=== PATIENT | female | born 1965 | race Two or more races ===

== ENCOUNTER → 2025-04-12 | Outpatient (CLI) | payer OTHER, MEDICAID, SELFPAY ==
--- NOTE | 2025-04-12 11:30 | XR_ITS ---
Examination: Screening digital mammography, bilateral Computer aided detection 3-D breast Tomosynthesis, bilateral Date and time of exam: April 12, 2025 1202 hours Compared to mammograms dating to September 03, 2017 Indication: Screening Technique: Nonmagnified MLO, CC views of the breasts to been obtained, reconstructed from 3-D Tomosynthesis images. R2 computer aided detection program utilized for evaluation of suspicious masses and/or abnormal calcifications. 3-D Tomosynthesis images obtained. Findings: Scattered areas of fibroglandular density. 25 mm focal asymmetry upper outer left breast Impression: BI-RADS Category 0: Incomplete: Need additional imaging evaluation 25 mm focal asymmetry upper outer left breast, recommend follow-up spot tomographic views of this asymmetry as well as left breast sonography to complete the workup.
== END | disposition home or self-care (01) ==
LOC: CDIM 11:50
PROVIDERS: Referring Provider Registered Nurse Community Health; Visit Provider Registered Nurse Community Health
DX: Z12.31 Encounter for screening mammogram for malignant neoplasm of breast (principal); N64.89 Other specified disorders of breast
CPT/HCPCS: 77063; 77067

== ENCOUNTER 2025-04-14 02:51 | Inpatient (IN) | payer OTHER, MEDICAID, MEDICARE, SELFPAY ==
[2025-04-14] VITALS (37 sets, daily range): BP systolic 110–176; BP diastolic 42–122; PULSE 103–144; RESP 13–31; TEMP 36.6–37.1; O2SAT 91–98; BMI 53.5
--- NOTE | 2025-04-14 03:03 | XR_ITS ---
Examination: CT abdomen and pelvis without contrast. Coronal 3-D reconstructions. Sagittal 2-D reconstructions. Date and time of exam:April 14, 2025, 0347 hours Comparison April 21, 2024. INDICATIONS: Abdominal pain and distention beginning yesterday CTDI: vol (mGy): 20.6 DLP: (mGycm): 1081. Technique: Axial images of the abdomen have been obtained, 3 mm slice thickness Intravenous contrast material has not been administered. Low dose protocols were performed. One or more of the following dose reduction techniques were used; automated exposure control, adjustment of the mA and/or KV according to patient size, use of iterative reconstruction technique. Findings: No focal liver or splenic lesions No gallstones Supraumbilical 6.6 cm hernia defect containing transverse colon and second ventral right hernia defect, 6.8 cm which contains small bowel Dilated small bowel loops consistent with at least partial obstruction Aorta normal size No renal or ureteral calculi Edema in the mesentery No pericecal inflammatory change Intact urinary bladder Anteverted uterus No pelvic mass Moderate osteopenia IMPRESSION: Hernia defects as above Small bowel obstruction pattern which appears to relate more to adhesions rather than definite incarcerated bowel in the hernia defects Consider Gastrografin small bowel series follow-up
--- NOTE | 2025-04-14 03:03 | EKG_ITS ---
[facility] Test Date: 2025-04-14 Pat Name: MEG DAY Department: Room: - Gender: Female Conservation Technician: : 1965 Requested By: Boris Connor Order Number: [id number] Reading MD: Boris Connor Measurements Intervals [place] Rate: 105 P: 48 WI: 167 QRS: 120 QRSD: 82 T: 39 QT: 351 QTc: 465 Interpretive Statements SINUS TACHYCARDIA POSSIBLE RIGHT VENTRICULAR HYPERTROPHY [SOME/ALL OF: PROMINENT R IN V1, LATE TRANSITION, RAD, AGNES, SSS] No previous ECG available for comparison /store/S0/[id number]/ecg/[id number].pdf
--- NOTE | 2025-04-14 03:06 | PD.EDABDPN ---
ED Abdominal Pain RME/HPI General Chief Complaint: Abdominal Pain Stated complaint: ABD PAIN, VOMITING Time seen by provider: 04/14/25 02:55 Arrival date/time: 04/14/25 02:51 RME / HPI RME / HPI narrative: DR. FRASER MAIN ED EVALUATION: 59 y/o female with Hx of previous bowel obstruction and remote ventral wall hernia repair presenting with generalized abdominal pain x 24 hours duration constant in nature, described as sharp. Also reports associated multiple episodes of non-bloody emesis. Denies dysuria and fever. Patient notes diaphoresis and increasing pain with valsalver. No other concerns or complaints expressed at this time. Related Data Home Medications ?Medication ?Instructions ?Recorded ?Confirmed lovastatin 40 mg tablet 40 mg PO HS High Cholesterol #0 07/25/14 04/21/24 tabs cyclobenzaprine 10 mg tablet 10 mg PO HS 04/21/24 04/21/24 empagliflozin 25 mg tablet 25 mg PO DAILY 04/21/24 04/21/24 (Jardiance) ergocalciferol (vitamin D2) 1,250 1,250 mcg PO QWEEK 04/21/24 04/21/24 mcg (50,000 unit) capsule ferrous sulfate 325 mg (65 mg 325 mg PO AC 04/21/24 04/21/24 iron) tablet (FeroSul) hydroxyzine HCl 50 mg tablet 50 mg PO HS 04/21/24 04/21/24 meloxicam 15 mg tablet 15 mg PO HS 04/21/24 04/21/24 omeprazole 20 mg capsule,delayed 20 mg PO DAILY 04/21/24 04/21/24 release semaglutide 2 mg/dose (8 mg/3 mL) 2 mg subcut QWEEK 04/21/24 04/21/24 subcutaneous pen injector (Ozempic) sertraline 100 mg tablet 100 mg PO DAILY 04/21/24 04/21/24 sitagliptin phosphate 100 mg 100 mg PO DAILY 04/21/24 04/21/24 tablet (Januvia) Previous Rx's ?Medication ?Instructions ?Recorded lactulose 20 gram/30 mL oral 20 g (30 mL) PO HS #1,200 mL 04/22/24 solution Allergies Allergy/AdvReac Type Severity Reaction Status Date / Time amoxicillin Allergy Severe DIFF Verified 06/15/20 03:47 BREATHING, HIVES Penicillins Allergy Severe DIFF Verified 06/15/20 03:47 BREATHING, HIVES ibuprofen Allergy Intermediate SWELLING Verified 06/15/20 03:47 TO LEGS Review of Systems Review of Systems Systems Reviewed: All systems reviewed, normal except as documented Past Medical History Past Medical History RESPIRATORY: Positive Asthma ENDOCRINE: Positive Diabetes Mellitus Type 2 ED Exam Narrative Physical exam: GEN. APPEARANCE: The patient is alert awake oriented X-3 in no distress, lying down comfortably, does not look ill/toxic. Patient has good eye contact. Patient is cooperative. VITALS: All vitals were reviewed and the pulse ox is 98% on room air which is normal according to my interpretation. HEENT: Normocephalic, atraumatic. Pupils are equal and reactive. Oral mucosa is moist. Patent Nares NECK: Supple, nontender, no thyromegaly, no meningismus, no JVD, no step offs CHEST: Symmetrical, atraumatic, and with equal expansion , Nontender on palpation no deformity and no crepitus. CARDIOVASCULAR: Heart regular rhythm no murmur or gallop rub or extra beats. LUNGS: Clear to auscultation bilaterally with symmetrical chest rise. No laboring tachypnea or wheezing. No intercostal subcostal retraction. No rales and no rhonchi. ABDOMEN: Soft, flat, nontender to palpation, no guarding or rebound tenderness. There are no abnormal masses palpated. Active and normal bowel sounds. EXTREMITIES: Nontender. No edema. No cyanosis. Patient is able to move all 4 extremities well, with full ROM and good CSM. SKIN: Warm and dry, no jaundice or rashes noted. MUSCULOSKELETAL: No lubar or midline bony tenderness. There is no CVA tenderness. No paraspinal muscle spasm or tenderness. NEURO: Patient is STERLING x 4, Cranial nerves II through XII grossly intact. There is no focal neurologic deficits noted. GCS is 15, PNS and GRILL ASSOCIATE appear grossly intact. PSYCHIATRIC: Patient is in normal mood and affect, cooperative, no SI or HI or hallucinations. Course Quality Measures none Orders Category Date Time Status EKG (ED ONLY) *Do not use* NOW Care 04/14/25 03:03 Completed Insert NG / OG tube NOW Care 04/14/25 06:23 Active Consult to Gastroenterology Stat Cons 04/14/25 06:[address] abdomen pelvis wo con Stat Exams 04/14/25 03:03 Taken EKG (ED Only) Stat Exams 04/14/25 03:03 Draft B-Type Natriuretic Peptide Stat Lab 04/14/25 03:20 Completed CBC Stat Lab 04/14/25 03:20 Completed Comprehensive Metabolic Panel Stat Lab 04/14/25 03:20 Completed Lipase Stat Lab 04/14/25 03:20 Completed Magnesium Stat Lab 04/14/25 03:20 Completed Urinalysis Stat Lab 04/14/25 03:03 Ordered Morphine Inj Med 04/14/25 03:03 Discontinued 4 mg IVP X1 ONE Ondansetron Inj [Zofran Inj] Med 04/14/25 03:08 Discontinued 4 mg IVP X1 ONE Vital Signs Vital signs: Vital Signs Temperature 98 F 04/14/25 03:11 Pulse Rate 110 H 04/14/25 03:11 Respiratory Rate 18 04/14/25 03:11 Blood Pressure 156/99 H 04/14/25 03:11 Pulse Oximetry (%) 98 04/14/25 03:11 Oxygen Delivery Method Room Air 04/14/25 03:11 Abdominal Pain MDM MDM Narrative MDM Narrative:: Scribe Attestation: IJu, am scribing for and in the presence of Dr. Fraser. Provider Notation: Although this document has been carefully reviewed, there may still be some phonetic and other typographical errors.? These errors are purely grammatical due to imperfections in the software program and should not be construed in any way to? compromise the substance of the patient's medical care during this visit. 59 y/o female with Hx of previous bowel obstruction and remote ventral wall hernia repair presenting with generalized abdominal pain x 24 hours duration constant in nature, described as sharp. Also reports associated multiple episodes of non-bloody emesis. Please see PE findings. Markedly WBC 12.3. Serum chemistries are unremarkable. Glucose level 378 mg/dL without signs of ketosis. Patient hydrated with NS and treated with low dose narcotic analgesics, anti-emetics, and referred for CT scan. CT of the abdomen/pelvis with documented evidence of SBO. NG tubbe placed, both hospitalist and human service specialist contacted and agree to admit and the latter to consult. Patient data External records reviewed:: [facility] previous records (Reviewed prior ED records from 07/17/24. Patient was seen for Diabetes mellitus with hyperglycemia.) Clinical information provided by:: patient Social determinants that could affect healthcare access:: none Patient has the following chronic illnesses:: Type II DM, Asthma How is presenting disease/condition affected by chronic disease/condition?: exacerbated by Evaluation data The following diagnostics were reviewed and interpreted by me:: lab results, radiology exam(s) and EKG tracing(s) (sin tach 105, no acute st aeg noted no vent ectopy axid righward/) Lab and/or radiology exams considered but not ordered:: None Interpretation Summary: RADIOLOGY Abdomen/Pelvis CT: Pending official radiology report. Medications / Prescriptions Medications or Prescriptions considered but not ordered:: None Medication administrations:: Medication Administration History Discontinued Medications Morphine Sulfate (Morphine Sulf Inj 10 Mg/Ml Vial) 4 mg IVP X1 ONE Stop: 04/14/25 03:04 Last Admin: 04/14/25 03:18 Dose: 4 mg Documented By: HANANE Ondansetron HCl (Ondansetron Inj 2 Mg/Ml Inj 2 Ml) 4 mg IVP X1 ONE; Protocol Stop: 04/14/25 03:09 Last Admin: 04/14/25 03:18 Dose: 4 mg Documented By: HANANE See above Consultations Consultation(s) initiated? (list below): Yes Consultation #1 (Physician, Specialty, Details): Dr. Hunter made aware of the patient?s HPI, PMHx, lab and/or radiology results. Discussed treatment plan. Will consult an admission to the hospitalist. Time: 05:58 Diagnosis Differential diagnosis abdominal pain: abdominal pain, acute appendicitis, calculus of kidney, constipation, diverticulitis, gastroenteritis, pancreatitis and small bowel obstruction Most likely diagnosis given after review of the tests above:: Small bowel obstruction Admission Indicated Admission indicated?: indicated Explain why admission is indicated or not indicated:: Small bowel obstruction Admission Request Was there a request for admission?: Yes Admission Attestation Admission request attestation: Discussed case with [] from Hospitalist service regarding admission. Discussed patients ED course, exam findings, labs, and radiology results. The Hospitalist [agrees,declines] to accept the patient for admission. Disposition Plan Disposition Plan: Admit Discharge Plan Plan Patient Disposition: Admit Acute Care w/in Hospital Prescriptions/Referrals Prescriptions/Med Rec: No Action lovastatin 40 MG tablet 40 mg PO HS Qty: 0 meloxicam 15 mg tablet 15 mg PO HS Patient Comments: take 1 tablet by mouth at bedtime hydroxyzine HCl 50 mg tablet 50 mg PO HS cyclobenzaprine 10 mg tablet 10 mg PO HS Patient Comments: take 1 tablet by mouth at bedtime sertraline 100 mg tablet 100 mg PO DAILY Patient Comments: take 1 tablet by mouth once daily Januvia 100 mg tablet 100 mg PO DAILY Patient Comments: take 1 tablet by mouth once daily omeprazole 20 mg capsule,delayed release(DR/EC) 20 mg PO DAILY Patient Comments: take 1 tablet by mouth once daily for HEARTBURN Jardiance 25 mg tablet 25 mg PO DAILY Patient Comments: take 1 tablet by mouth once daily ferrous sulfate [FeroSul] 325 mg (65 mg iron) tablet 325 mg PO AC Patient Comments: take 1 tablet by mouth once daily BEFORE A MEAL Ozempic 2 mg/dose (8 mg/3 mL) pen injector 2 mg SUBCUT QWEEK Patient Comments: inject 2 milligram subcutaneously every week ergocalciferol (vitamin D2) 1,250 mcg (50,000 unit) capsule 1,250 mcg PO QWEEK Patient Comments: take 1 capsule by mouth every week lactulose 20 gram/30 mL solution 20 g PO HS Qty: 1200 3RF Referrals: Brie Boyd FNP [Primary Care Provider] - In 1 week Problem List Clinical Impression: Small bowel obstruction Patient/Caregiver Discharge Instructions Print Language: Estonian Stand Alone Forms: Brittnee Award Info., Patient Portal Info Letter
[2025-04-14] MEDS: MORPHINE SULF INJ 10 MG/ML VIAL 4 MG IVP (03:18)
[2025-04-14] MEDS: ONDANSETRON INJ 2 MG/ML INJ 2 ML 4 MG IVP ×2 (03:18→08:24)
[2025-04-14 03:29] LABS: Basophils # (Auto) 0.0 Thou/mm3 (0.0-0.2); Basophils % (Auto) 0 % (0-2.5); Eosinophils # (Auto) 0.0 Thou/mm3 (0.0-0.5); Eosinophils % (Auto) 0 % (0-10); Hematocrit 41.4 % (36.0-46.0); Hemoglobin 13.2 g/dL (12.0-16.0); Immature Granulocytes Auto 0.05 Thou/mm3 (0.00-0.00); Lymphocytes # (Auto) 1.5 Thou/mm3 (1.0-4.8); Lymphocytes % (Auto) 12 % (10-50); Mean Corpuscular HGB Conc 31.9 g/dl (31.0-37.0); Mean Corpuscular Hemoglobin 22.7 pg (25.0-35.0); Mean Corpuscular Volume 71 fL (80-100); Monocytes # (Auto) 0.3 Thou/mm3 (0.0-0.8); Monocytes % (Auto) 3 % (0-12); Neutrophils # (Auto) 10.3 Thou/mm3 (1.8-7.7); Neutrophils % (Auto) 84 % (37-80); Nucleated Red Blood Cell # 0.00 Thou/mm3 (0.00-0.00); Nucleated Red Blood Cell % 0 /100 WBC (0); Platelet Count 234 Thou/mm3 (140-440); RDW Standard Deviation 44.4 fL (36.4-46.3); Red Blood Count 5.82 Miln/mm3 (4.00-5.20); White Blood Count 12.3 Thou/mm3 (3.6-11.0)
[2025-04-14 03:49] LABS: B-Type Natriuretic Peptide < 20 pg/mL (0-100)
[2025-04-14 04:03] LABS: Alanine Aminotransferase 42 U/L (10-49); Albumin, Serum 4.7 gm/dL (3.4-4.8); Albumin/Globulin Ratio 1.2 (1.2-2.2); Alkaline Phosphatase 138 U/L (46-116); Anion Gap 14 (7-16); Aspartate Amino Transferase 40 U/L (0-34); BUN/Creatinine Ratio 9 Ratio (12-20); Bilirubin,Total 0.6 mg/dL (0.3-1.2); Blood Urea Nitrogen 7 mg/dL (9-23); Calcium 9.7 mg/dL (8.3-10.6); Calcium (Corrected) 9.7 mg/dL (8.5-10.1); Carbon Dioxide 25.0 mMol/L (20.0-31.0); Chloride 100 mMol/L (98-107); Creatinine (Component) 0.8 mg/dL (0.6-1.3); Estimated Creatinine Clearance 71.5 mL/min (>60); Globulin 3.8 gm/dL (2.3-3.5); Glucose 378 mg/dL (74-106); Lipase 43 U/L (12-53); Magnesium 1.9 mg/dL (1.6-2.6); Osmolality,Calculated 291 (275-295); Potassium 4.0 mMol/L (3.4-5.1); Sodium 139 mMol/L (136-145); Total Protein 8.5 gm/dL (5.7-8.2); eGFR > 60 See Note
--- NOTE | 2025-04-14 05:30 | PRELIM_ITS ---
CT scan of the abdomen and pelvis without intravenous contrast (axial sections with sagittal and coronal reformats) April 14, 2025 0347 hours Clinical History: Rule out perforation Comparison: April 21, 2024. Findings: The lung bases are clear. The gallbladder, pancreas, kidneys and adrenals are unremarkable on this noncontrast study. The liver is enlarged with a calcified granuloma in the right lobe. There is mild splenomegaly. There are supraumbilical ventral abdominal wall hernias containing non-dilated loop of transverse colon and mesenteric fat. There are fluid filled and mildly prominent mid small bowel loops with caliber change in the anterior mid abdomen inferior to the abdominal wall at the level of proximal ileum. The remainder of the ileum is normal in caliber. The appendix is within normal limits (images [id number]). A moderate amount of fecal material is present in the colon. There is no mesenteric or retroperitoneal adenopathy. The urinary bladder is unremarkable. The uterus and adnexa are unremarkable. There is no free fluid or free air. The abdominal aorta demonstrates atheromatous calcification without evidence of aneurysm. Osseous degenerative changes are noted. Impression: 1. Findings suggestive of recurrent small bowel obstruction with transition in the anterior mid abdomen inferior to the abdominal wall at the level of proximal ileum likely due to adhesions. Interval decrease in caliber of the dilated small bowel as compared to prior study. 2. Other findings as described above. Discussion Details: Results verbally communicated to : Dr. Tracey at 05:19 AM 04/14/2025 Report Electronically Signed By: Jamie Gilbert 04/14/2025 5:29:49 AM [EST]
[2025-04-14 07:18] LABS: Collection Type, Urine Clean Catch
--- NOTE | 2025-04-14 07:30 | PC.NURSE ---
admitting providers at bedside. providers notified pt is requesting pain meds prior to NG tube placement.
[2025-04-14 07:33] LABS: Bacteria,Urine Rare; Bilirubin,Urine Negative (Negative); Blood,Urine Negative (Negative); Budding Yeast,Urine Present; Clarity,Urine Clear (Clear/Hazy); Color,Urine Colorless (Lt Yel-Yel); Glucose, Urine 4+ (Negative); Ketones,Urine 3+ (Negative); Leukocyte Esterase,Urine Negative (Negative); Nitrite,Urine Negative (Negative); PH,Urine 6.0 (5.0-7.0); Protein,Urine Negative (Neg - Trace); RBC,Urine 17 /hpf (0-3); Specific Gravity,Urine 1.037 (1.001-1.035); Squamous Epithelial Cell,Urine 3 /hpf (0-5); Urobilinogen,Urine Negative mg/dL (0.0-1.0); WBC,Urine 2 /hpf (0-5)
--- NOTE | 2025-04-14 08:12 | XR_ITS ---
Examination: Small bowel series AP abdomen 3 views Date and time: April 14, 2025 0936 hours INDICATIONS: Abdominal pain and distention this week, small bowel obstruction pattern on CT abdomen pelvis study 0347 hours this morning, abdominal pain and vomiting TECHNIQUE AND FINDINGS: Patient received 120 cc Gastrografin with immediate, 30 minute, 1 hour delayed abdomen films obtained Contrast is present in dilated jejunal loops IMPRESSION: Contrast present in dilated jejunal loops. Recommend follow-up abdomen films 12 noon, 2:00 PM, 4:00 PM
--- NOTE | 2025-04-14 08:14 | ESHP_ITS ---
<Statement entered by Gilmar Avila MD - 04/14/25 15:47> In summary: 59-year-old female with PMHx of T2DM, HTN, HLD, multiple hernia repairs, presenting with abdominal pain x 1 day, with imaging finding of SBO. She was started on GASTROGRAFIN study, NG tube in place. However, she also presented with GLUCOSE of 306, anion gap 14, urine GLUCOSE 4+, urine ketones 3+, sinus tachycardia, and reported symptoms of nausea, prompting further workup for possible DKA. She was continued on IV fluids, INSULIN was started. Follow-up with BHB which was elevated to 4.2. Repeat CBC showed anion gap of 18. ABG showed no evidence of acidosis. CO2 21.9. Nonetheless, given increasing anion gap, decision was made to admit to ICU for INSULIN drip. Case was discussed with attending physician. Gilmar Avila DO PGY II This document was transcribed using voice recognition technology. Minor inaccuracies may be present. Documentation for date of: 04/14/25 HPI History of Present Illness History of present illness: Annmarie Pineda is a 59-year-old female with past medical history of three abdominal hernias, T2DM, asthma who presented to the ED with 24-hour history of abdominal pain. Pain was described as sharp, constantly present, rated 10 out of 10. Patient admits to nonbloody emesis, dizziness, weakness, profuse sweating. Denies fevers or dysuria. Patient had large jose a, peanuts with hot sauce, before she became nauseous and vomited 5 times at home and 3 times in the ED. last bowel movement was last night. Denies any blood in emesis or stool. Denies weight loss changes in appetite. In the ED, patient's pain was controlled with IVP morphine 4 mg x 2, and her nausea with IVP ondansetron. Allergies: Amoxicillin and penicillin Past medical history: Abdominal ventral wall hernia x 3, T2DM, asthma, arthritis, fibromyalgia. Past surgical history: Abdominal ventral hernia repair in 2006, 1993 which resulted in accidental cutting of the bowel loops and required corrective surgery afterwards, surgery to repair tibial fracture. Family history: Father from a stroke. A brother and a sister have DM. Social history: Denies using tobacco products, smoking, marijuana or other drug use. Denies drinking alcohol. Reason for admission: On CT imaging in ED patient was found to have hernia was containing bowel loops; incarceration could not be ruled out. Additionally, there is concern over possible DKA: Widened anion gap 18, glucose 345. Patient is being admitted for the workup of possible SBO and appropriate treatment to resolve her signs and symptoms associated with uncontrolled hyperglycemia. Exam Vital Signs Temp Pulse Resp BP Pulse Ox O2 Del Method 98.4 F 116 H 18 140/97 H 96 Room Air 04/14/25 08:12 04/14/25 08:12 04/14/25 08:12 04/14/25 08:12 04/14/25 08:12 04/14/25 08:12 Narrative Exam General: Alert and oriented x3, No apparent distress. Skin: Intact, Warm, no rashes. HEENT: Normocephalic, Atraumatic. Normal neck range of motion, Supple. Trachea midline. Respiratory: Lungs are clear to auscultation, Breath sounds are equal bilaterally with equal chest expansion. Abdomen: Soft, distended, some guarding noted, diffusely tender to shallow palpation, diminished bowel sounds. Cardiovascular: RRR, normal S1, S2, No murmurs. Distal pulses 2+ Musculoskeletal: No swelling, moving all 4 extremities with FROM Neurologic: Alert, Oriented, No focal deficits. Moving all 4 extremities spontaneously Psych: Thoughts linear and responses appropriate. Results: Labs 04/14/25 03:20 04/15/25 02:16 Labs: Short CBC 04/14/25 Range/Units 03:20 WBC 12.3 H (3.6-11.0) Thou/mm3 Hgb 13.2 (12.0-16.0) g/dL Hct 41.4 (36.0-46.0) % Plt Count 234 (140-440) Thou/mm3 BMP 04/14/25 03:20 Sodium 139 Potassium 4.0 Chloride 100 Carbon Dioxide 25.0 BUN 7 L Creatinine 0.8 Glucose 378 H Calcium 9.7 Liver Function 04/14/25 Range/Units 03:20 Total Bilirubin 0.6 (0.3-1.2) mg/dL AST 40 H (0-34) U/L ALT 42 (10-49) U/L Alkaline Phosphatase 138 H (46-116) U/L Albumin 4.7 (3.4-4.8) gm/dL Urine 04/14/25 Range/Units 06:42 Urine Color Colorless A (Lt Yel-Yel) Urine Clarity Clear (Clear/Hazy) Urine pH 6.0 (5.0-7.0) Ur Specific [place] 1.037 H (1.001-1.035) Urine Protein Negative (Neg - Trace) Urine Glucose (UA) 4+ A (Negative) Quality Measures Quality Measures none Medications Home Medications and Allergies Home Medications ?Medication ?Instructions ?Recorded ?Confirmed ?Type lovastatin 40 mg tablet 40 mg PO HS High Cholesterol #0 07/25/14 04/21/24 History tabs cyclobenzaprine 10 mg tablet 10 mg PO HS 04/21/2404/05 History empagliflozin 25 mg tablet 25 mg PO DAILY 04/21/24 History (Jardiance) ergocalciferol (vitamin D2) 1,250 1,250 mcg PO QWEEK 0 04/21/24 04/21/24 History mcg (50,000 unit) capsule ferrous sulfate 325 mg (65 mg 325 mg PO AC 04/21/24 History iron) tablet (FeroSul) hydroxyzine HCl 50 mg tablet 50 mg PO HS 04/21/2404/05 History meloxicam 15 mg tablet 15 mg PO HS 04/21/24 4 History omeprazole 20 mg capsule,delayed 20 mg PO DAILY 04/21/24 History release semaglutide 2 mg/dose (8 mg/3 mL) 2 mg subcut QWEEK 04/21/24 History subcutaneous pen injector (Ozempic) sertraline 100 mg tablet 100 mg PO DAILY 04/21/24 History sitagliptin phosphate 100 mg 100 mg PO DAILY 04/21/24 04/21/24 History tablet (Januvia) Allergies Allergy/AdvReac Type Severity Reaction Status Date / Time amoxicillin Allergy Severe DIFF Verified 06/15/20 03:47 BREATHING, HIVES Penicillins Allergy Severe DIFF Verified 06/15/20 03:47 BREATHING, HIVES ibuprofen Allergy Intermediate SWELLING Verified 06/15/20 03:47 TO LEGS Visit Medications Acetaminophen (Acetaminophen 325 Mg Tablet) 650 mg PO Q6H PRN PRN Reason: PAIN SCALE 1-3 (mild Stop: 05/14/25 08:10 Acetaminophen (Acetaminophen 325 Mg Tablet) 650 mg PO Q6H PRN PRN Reason: Fever >100.4 Stop: 05/14/25 08:10 Hydrocodone Bitart/Acetaminophen (Hydrocodone/Apap 10/325 Tab) 1 tab PO Q4HR PRN PRN Reason: PAIN SCALE 7-10 (Severe Stop: 04/19/25 08:10 Dextrose (Dextrose 50%-Water Inj 50 Ml Syringe) 25 ml IV Q15MIN PRN PRN Reason: BG 50-70 responsive npo pt Stop: 05/14/25 08:12 Dextrose (Dextrose 50%-Water Inj 50 Ml Syringe) 50 ml IV Q15MIN PRN PRN Reason: BG <50 OR BG <70 & pt unresponsive Stop: 05/14/25 08:12 Glucagon (Glucagon Inj 1 Mg Vial) 1 mg IM Q15MIN PRN PRN Reason: BG <70, and no IV access Heparin Sodium (Porcine) (Heparin Sod Inj 5000 Unit/Ml Vial) 5,000 unit SC BID [facility] Stop: 04/28/25 08:59 Lactated Ringer's (Lactated Ringers) 1,000 mls @ 80 mls/hr IV .[id number] [facility] Stop: 05/14/25 08:11 Insulin Human Lispro (Insulin Lispro (Admelog) 1 Unit/0.01 Ml Unit) 0 unit SC ACHS [facility]; Protocol Stop: 05/14/25 11:29 Morphine Sulfate (Morphine Sulf Inj 10 Mg/Ml Vial) 2 mg IVP X1 ONE Stop: 04/14/25 08:12 Ondansetron HCl (Ondansetron Inj 2 Mg/Ml Inj 2 Ml) 4 mg IVP Q6H PRN; Protocol PRN Reason: NAUSEA OR VOMITING Stop: 05/14/25 08:10 Oxycodone/Acetaminophen (Oxycodone/Apap 5/325 Tablet) 1 tab PO Q6H PRN PRN Reason: PAIN SCALE 4-6 (Moderate Stop: 04/19/25 08:10 Pantoprazole Sodium (Pantoprazole Inj 40 Mg Vial) 40 mg IVP QDAY KELLY Stop: 05/14/25 08:59 Discontinued Medications Morphine Sulfate (Morphine Sulf Inj 10 Mg/Ml Vial) 4 mg IVP X1 ONE Stop: 04/14/25 03:04 Last Admin: 04/14/25 03:18 Dose: 4 mg Ondansetron HCl (Ondansetron Inj 2 Mg/Ml Inj 2 Ml) 4 mg IVP X1 ONE; Protocol Stop: 04/14/25 03:09 Last Admin: 04/14/25 03:18 Dose: 4 mg Assessment & Plan Plan In summary, Annmarie Pineda is a 67-year-old female with PMH of T2DM, arthritis, fibromyalgia, asthma, who presented to the ED with worsening abdominal pain of 24H length. Patient was hyperglycemic and there was concern over symptoms associated with DKA. #Small bowel obstruction, needs to be ruled out Diffuse severe abdominal pain, N/V on presentation. Guarding, abdominal tenderness, diminished bowel sounds on PE. CTAP: Supraumbilical hernia defect containing transverse colon + right ventral hernia defect containing small bowel + dilated small bowel loops. Acute abdominal series with Gastrografin study revealed partial small bowel obstruction. Contrast traveled to mildly distended small bowel loops as well as the colon. ?NG tube gastric decompression. -IV fluids ?N.p.o. -Antiemetics Zofran and hydroxyzine ?Multimodal pain control as needed #Possible DKA Anion gap 18; initial Glucose 378; urine glucose 4+; urine ketones 3+ Patient A&O x 4, normal breathing Plan: -Insulin lispro 4 units ?IV LR 250 mL/h ? Sodium bicarb 8.4% #Type 2 diabetes mellitus Patient on Ozempic Jardiance Januvia at home HgA1c 8.5 one-year ago Plan: Patient on sliding scale insulin #Depression Sertraline 100 mg p.o. daily #Asthma #Arthritis #Fibromyalgia Health maintenance: Diet: N.p.o. GI prophylaxis: Protonix DVT prophylaxis heparin injection 5000 units SC Disposition: ICU Case was discussed with attending physician, Dr. Phillips, and senior resident Dr Avila. Cullen De Leon, PGY I Attending Provider Attestation/Addendum I have examined the patient, reviewed labs and imaging findings, discussed the case with the resident(s), and reviewed entered orders. I agree with the plan of care as outlined in this note, with these additional summaries/recommendations: After examination of the patient and review of the clinical data, I feel that this patient needs admission to the hospital for further treatment and evaluation. Patient is a 59-year-old female with a medical history of multiple abdominal surgeries, history of SBO, hyperlipidemia, primary hypertension, and diabetes mellitus type 2 presents to [facility] emergency department on 04/14/2025 with chief complaint of abdominal pain that simply worsened over 24 hours. Patient seen at bedside. She endorses severe abdominal pain. He denies having bowel movement. CT abdomen and pelvis was obtained on admission which revealed small bowel obstruction pattern more related to adhesions than incarcerated bowel. NG tube was placed to low intermittent suction, n.p.o., and small bowel series ordered. Patient has history of SBO that resolved previously. We will await surgical consultation until small bowel series completed. Continue Zofran for nausea. Patient was also noted to have relatively severe hyperglycemia on admission with blood sugar 378. Beta hydroxybutyrate was obtained and returned to 4.2. Blood gas shows normal pH. Patient diagnosed with mild HHS/DKA. Case discussed with ICU team and patient will be upgraded for management of blood sugars. Leukocytosis present although likely reactive and will monitor for now. Patient updated on the plan and in agreement. All questions answered to satisfaction. Please see residents note for additional details and management. Dr. Alan MD
[2025-04-14] MEDS: MORPHINE SULF INJ 10 MG/ML VIAL 2 MG IVP (08:24)
[2025-04-14] MEDS: RINGERS LACTATED 1000 ML 1,000 ML 80 ML IV (08:27)
[2025-04-14] MEDS: HEPARIN SOD INJ 5000 UNIT/ML VIAL SC ×2 (08:39→21:04)
--- NOTE | 2025-04-14 08:50 | XR_ITS ---
Examination: AP chest single view Technique one AP portable upright chest single view Date and time: April 14, 2025 0854 hours Comparison November 25, 2014 INDICATIONS: Post orogastric tube placement. FINDINGS: Orogastric tube in the stomach satisfactory position. Normal heart size. No pneumonia or pulmonary edema IMPRESSION: Orogastric tube in the stomach satisfactory position.
--- NOTE | 2025-04-14 10:30 | PC.CC ---
Xochilt ABRAHAM made [id number] contact with patient. AMFT introduced self, role, and reason for visit. Patient appeared confused and disoriented. Patients Jak Pineda [phone] identified self as Next if Kin. was pleasant and engaged in initial assessment. Patient is a 59 year-old female who presents to the hospital for SBO. Xochilt ABRAHAM made [id number] contact with patient. AMFT introduced self, role, and reason for visit. Patients was pleasant and engaged in initial assessment. confirmed information on demographics and reports patient is living at home with and daughter. reports is medical decision maker, Jak Pineda [phone]. reports Patient ambulates with a cane but does not need assistance in completing her ADLs. Patient requires single cane as DME. Patient is not a dialysis patient. Patient's primary provider is Brie Boyd and her pharmacy of choice is [facility] in [place]. Upon discharge patient plans to return home. social services aide to follow up with any discharge needs.
[2025-04-14] MEDS: INSULIN LISPRO (AdmeLOG) 1 UNIT/0.01 ML UNIT SC (11:28)
--- NOTE | 2025-04-14 11:30 | PC.NURSE ---
pt attempted to have a BM, attempt unsuccessful.
[2025-04-14 11:58] LABS: Beta Hydroxybutyrate 4.2 mmol/L (<0.6)
--- NOTE | 2025-04-14 12:00 | XR_ITS ---
Examination: Abdomen AP single view Technique: AP portable supine abdomen, single view Exam date and time: April 14, 2025 1158 hours INDICATIONS: 3 hour delayed film post small bowel series today. FINDINGS: Contrast in mildly distended small bowel loops There does appear to be contrast in the colon IMPRESSION: Incomplete small bowel obstruction
[2025-04-14] MEDS: RINGERS LACTATED 1000 ML 1,000 ML 999 ML IV (12:35)
[2025-04-14 12:48] LABS: Lactate (Lactic Acid) 1.6 mMol/L (0.4-2.0)
[2025-04-14 12:53] LABS: Alanine Aminotransferase 39 U/L (10-49); Albumin, Serum 4.4 gm/dL (3.4-4.8); Albumin/Globulin Ratio 1.2 (1.2-2.2); Alkaline Phosphatase 131 U/L (46-116); Anion Gap 18 (7-16); Aspartate Amino Transferase 36 U/L (0-34); BUN/Creatinine Ratio 13 Ratio (12-20); Bilirubin,Total 0.4 mg/dL (0.3-1.2); Blood Urea Nitrogen 10 mg/dL (9-23); Calcium 9.4 mg/dL (8.3-10.6); Calcium (Corrected) 9.4 mg/dL (8.5-10.1); Carbon Dioxide 21.9 mMol/L (20.0-31.0); Chloride 105 mMol/L (98-107); Creatinine (Component) 0.8 mg/dL (0.6-1.3); Estimated Creatinine Clearance 71.5 mL/min (>60); Globulin 3.6 gm/dL (2.3-3.5); Glucose 345 mg/dL (74-106); Osmolality,Calculated 301 (275-295); Potassium 4.1 mMol/L (3.4-5.1); Sodium 145 mMol/L (136-145); Total Protein 8.0 gm/dL (5.7-8.2); eGFR > 60 See Note
[2025-04-14 13:11] LABS: Base Excess -1 (-3-3); HCO3 25 mEq/L (20-26); Inspired Oxygen, FIO2 21 %; O2 Saturation 92 % (91-98); PCO2 43 mmHg (32.0-48.0); PO2 63 mmHg (83-108); pH, Arterial 7.36 (7.35-7.45)
[2025-04-14 13:16] LABS: Allen Test Not Performed; Puncture Site Right Radial
--- NOTE | 2025-04-14 13:17 | ESCONSULT_ITS ---
<Statement entered by Jakub Oneill MD - 04/15/25 08:48> TOTAL CC TIME: 45MIN I saw and evaluated the patient. I reviewed the resident?s note and agree with findings and plan as documented in the resident?s note. Upon my evaluation, this patient had a high probability of imminent or life- threatening deterioration due to DKA which required my direct attention, intervention, and personal management. This time is exclusive of time spent on procedures, which are documented separately if performed. pt seen and examined in ED w/ ICU team due to SBO - she has had poor po intake hx of prior SBOs - due to adhesions hx of multiple hernia repair denies severe abd pain / n / v currently abd obese and non tender ngt to lis will initiate IVFs and DKA order set - admit to ICU HPI Data of Consult Patient: new to practice Consult date: 04/14/25 Requesting Physician: Iraj Phillips MD Admitting Provider: Iraj Phillips MD Attending Provider: Jakub Oneill MD Primary Care Provider: EMMY Dawson Consult Narrative Reason for consult: High anion gap History of present illness: Ms. Pineda is a 59-year-old female with past medical history of abdominal hernia with multiple adhesions in abdomen, yrb-zmwrqiw-dsjnzygmc type 2 diabetes mellitus, fibromyalgia, asthma, hypertension, hyperlipidemia, osteoarthritis and anemia who presented to [facility] emergency department on 04/14/2025 with a chief complaint of generalized abdominal pain. Patient reported that her symptoms started yesterday, sudden in onset and progressively got worse, reports that she was in significant pain and distress since yesterday, though did have 2 bowel movements. This morning her abdomen became more distended she had severe pain and decided to come to the emergency department for evaluation, patient reports underlying chills dizziness nausea and vomiting associated with her abdominal pain reports that she had about 5 episodes of nonbloody emesis, denies any blood in stool as well. Patient reports that she was fairly well prior to yesterday, denies any sick contacts, shortness of breath, chest pain, near-syncope, syncope, headache, any urinary symptoms and diarrhea. ED Course: ED Vitals: On presentation in ED patient's blood pressure 156/99, heart rate 110, respirate rate 18, temp 98, O2 sat 98 on room air. ED Labs: ED labs show WBC 12.3, RBC 5.82, MCV 71, MCH 22.7, sodium 139, potassium 4.0, chloride 100, bicarb 25, anion gap 14, BUN 7, creatinine 0.8, GFR greater than 60, glucose 378, osmolality 291, calcium 9.7, magnesium 1.9, AST 40, alk phos 138, total protein 8.5, globulin 3.8 ED Imaging: Imaging in ED showed CT abdomen pelvis showing hernia defects, small bowel obstruction patent related to adhesions, small bowel series ordered and ED show contrast and dilated jejunal loops follow-up abdominal x-ray at 12 shows incomplete SBO, chest x-ray in ED shows OG tube in satisfactory position and EKG in ED shows sinus tachycardia, QTc 465 ED Treatment: Patient was given morphine 4 mg x 2, Zofran 4 mg x 2 in ED Patient was admitted to the Medr floor by hospitalist team earlier this morning, due to concern of patient's blood glucose being significantly elevated and 300s, CMP was repeated by hospitalist team showing anion gap of 18 and the bicarb was downtrending. Urine glucose 4 positive, ketones 3 positive. Beta hydroxybutyrate was elevated to 4.2 patient was noted to be progressing towards diabetic ketoacidosis, decision was made to transfer patient to intensive care unit for DKA management. cc:: cc: Iraj Phillips MD Review of Systems Review of Systems Narrative Review of Systems: ROS: -CONSTITUTIONAL: Denies weight loss, fever and positive for chills. -HEENT: Denies changes in vision and hearing. -RESPIRATORY: Denies SOB and cough. -CV: Denies palpitations and Chest Pain. -GI: Positive for abdominal pain, nausea, vomiting,constipation and denies diarrhea. -: Denies dysuria and urinary frequency. -MSK: Denies myalgia and joint pain. Positive for fatigue generalized weakness -SKIN: Denies rash and pruritus. -NEUROLOGICAL: Denies headache and syncope. Positive for dizziness -PSYCHIATRIC: Denies recent changes in mood. Denies anxiety and depression. Past Medical History Past Medical History Comments PMH COMMENT: PMH: Positive for abdominal hernia with multiple adhesions in abdomen, som-ocbiumf-aisoiyqzv type 2 diabetes mellitus, fibromyalgia, asthma, hypertension, hyperlipidemia, osteoarthritis and anemia PSHx: Patient reports having multiple abdominal surgeries, Abdominal ventral hernia repair in 2006, 1993 which resulted in accidental cutting of the bowel loops and required corrective surgery afterwards, surgery to repair tibial fracture. Patient reports she had left knee replacement Allergies:Amoxicillin and penicillin (difficulty breathing, hives) ibuprofen (difficulty breathing) Social history: -Smoking: Denies -Alcohol Use: Denies -Illicit Drug Use: Denies Family History:Father from a stroke. A brother and a sister have DM. Exam Vital Signs Temp Pulse Resp BP Pulse Ox O2 Del Method 98 F 120 H 19 141/97 H 95 Room Air 04/14/25 12:00 04/14/25 12:00 04/14/25 12:00 04/14/25 12:00 04/14/25 12:04/14/25 12:00 Narrative Exam Physical Exam General: Awake and in no acute distress. Conversational and non-toxic appearing. HEENT: Normocephalic, atraumatic, mucous membranes moist. NG tube noted. Heart: Sinus tachycardia, no murmurs. Lungs: Clear to auscultation with no wheezing or crackles. Decreased breath sounds bilateral lower lobes. Abdomen: Soft, distended, nontender, no bowel sounds. ?No guarding or rebound tenderness. Neurologic: Alert and oriented x3, no gross neurological deficit, and patient able to move all 4 extremities. Extremities: 1+ bilateral lower extremity edema Skin: No rash or ecchymoses. Results Labs 04/14/25 03:20 04/14/25 11:39 Labs: Short CBC 04/14/25 Range/Units 03:20 WBC 12.3 H (3.6-11.0) Thou/mm3 Hgb 13.2 (12.0-16.0) g/dL Hct 41.4 (36.0-46.0) % Plt Count 234 (140-440) Thou/mm3 BMP 04/14/25 04/14/25 03:20 11:39 Sodium 139 145 Potassium 4.0 4.1 Chloride 100 105 Carbon Dioxide 25.0 21.9 BUN 7 L 10 Creatinine 0.8 0.8 Glucose 378 H 345 H Calcium 9.7 9.4 Liver Function 04/14/25 04/14/25 Range/Units 03:20 11:39 Total Bilirubin 0.6 0.4 (0.3-1.2) mg/dL AST 40 H 36 H (0-34) U/L ALT 42 39 (10-49) U/L Alkaline Phosphatase 138 H 131 H (46-116) U/L Albumin 4.7 4.4 (3.4-4.8) gm/dL Urine 04/14/25 Range/Units 06:42 Urine Color Colorless A (Lt Yel-Yel) Urine Clarity Clear (Clear/Hazy) Urine pH 6.0 (5.0-7.0) Ur Specific [place] 1.037 H (1.001-1.035) Urine Protein Negative (Neg - Trace) Urine Glucose (UA) 4+ A (Negative) ABG Interpretation ABG results: 04/14/25 13:05 ABG pH 7.36 ABG pCO2 43 ABG pO2 63 L ABG HCO3 25 ABG O2 Saturation 92 ABG Base Excess -1 Quality Measures Quality Measures none Medications Home Medications and Allergies Home Medications ?Medication ?Instructions ?Recorded ?Confirmed ?Type lovastatin 40 mg tablet 40 mg PO HS High Cholesterol #0 07/25/14 04/21/24 History tabs cyclobenzaprine 10 mg tablet 10 mg PO HS 04/21/2404/05 History empagliflozin 25 mg tablet 25 mg PO DAILY 04/21/24 History (Jardiance) ergocalciferol (vitamin D2) 1,250 1,250 mcg PO QWEEK 0 04/21/24 04/21/24 History mcg (50,000 unit) capsule ferrous sulfate 325 mg (65 mg 325 mg PO AC 04/21/24 History iron) tablet (FeroSul) hydroxyzine HCl 50 mg tablet 50 mg PO HS 04/21/2404/05 History meloxicam 15 mg tablet 15 mg PO HS 04/21/24 4 History omeprazole 20 mg capsule,delayed 20 mg PO DAILY 04/21/24 History release semaglutide 2 mg/dose (8 mg/3 mL) 2 mg subcut QWEEK 04/21/24 History subcutaneous pen injector (Ozempic) sertraline 100 mg tablet 100 mg PO DAILY 04/21/24 History sitagliptin phosphate 100 mg 100 mg PO DAILY 04/21/24 04/21/24 History tablet (Januvia) Allergies Allergy/AdvReac Type Severity Reaction Status Date / Time amoxicillin Allergy Severe DIFF Verified 06/15/20 03:47 BREATHING, HIVES Penicillins Allergy Severe DIFF Verified 06/15/20 03:47 BREATHING, HIVES ibuprofen Allergy Intermediate SWELLING Verified 06/15/20 03:47 TO LEGS Visit Medications Acetaminophen (Acetaminophen 325 Mg Tablet) 650 mg PO Q6H PRN PRN Reason: PAIN SCALE 1-3 (mild Stop: 05/14/25 08:10 Acetaminophen (Acetaminophen 325 Mg Tablet) 650 mg PO Q6H PRN PRN Reason: Fever >100.4 Stop: 05/14/25 08:10 Hydrocodone Bitart/Acetaminophen (Hydrocodone/Apap 10/325 Tab) 1 tab PO Q4HR PRN PRN Reason: PAIN SCALE 7-10 (Severe Stop: 04/19/25 08:10 Atorvastatin Calcium (Atorvastatin Calcium 10 Mg Tablet) 10 mg PO HS KELLY Stop: 05/14/25 20:59 Cyclobenzaprine HCl (Cyclobenzaprine 5 Mg Tablet) 10 mg PO HS KELLY Stop: 05/14/25 20:59 Dextrose (Dextrose 50%-Water Inj 50 Ml Syringe) 25 ml IV [id number] PRN PRN Reason: Blood Sugar - Low Heparin Sodium (Porcine) (Heparin Sod Inj 5000 Unit/Ml Vial) 5,000 unit SC BID KELLY Stop: 04/28/25 08:59 Last Admin: 04/14/25 08:39 Dose: 5,000 unit Hydroxyzine HCl (Hydroxyzine Hcl 25 Mg Tablet) 50 mg PO HS KELLY Stop: 05/14/25 20:59 Lactated Ringer's (Lactated Ringers) 1,000 mls @ 999 mls/hr IV .Q1H1M ONE Stop: 04/14/25 13:29 Last Admin: 04/14/25 12:35 Dose: 999 mls/hr Lactated Ringer's (Lactated Ringers) 1,000 mls @ 200 mls/hr IV .Q5H KELLY Stop: 05/14/25 12:44 Potassium Chloride (Kcl Ivpb) 10 meq in 100 mls @ 100 mls/hr IV .Q1H PRN PRN Reason: IF POTASSIUM LESS THAN 3.3 Stop: 05/14/25 13:08 Magnesium Sulfate (Magnesium Sulfate Ivpb) 2 gm in 50 mls @ 25 mls/hr IV .Q2H PRN PRN Reason: PER DKA PROTOCOL Stop: 05/14/25 13:08 Insulin Human Regular 100 unit (/ IV Miscellaneous Supplies) 100 mls @ 9.344 mls/hr IV .[id number] PRN; Protocol PRN Reason: PER PROTOCOL Stop: 05/14/25 13:08 Dextrose/Lactated Ringer's (D5-Lr) 1,000 mls @ 250 mls/hr IV .Q4H PRN PRN Reason: PER PROTOCOL Stop: 05/14/25 13:08 Lactated Ringer's (Lactated Ringers) 1,000 mls @ 250 mls/hr IV .Q4H PRN PRN Reason: PER PROTOCOL Stop: 04/15/25 13:08 Potassium Chloride 20 meq/ (Lactated Ringer's) 1,010 mls @ 250 mls/hr IV .Q4H3M PRN PRN Reason: K LEVEL 3.3 TO 5.3mM/L Stop: 05/14/25 13:08 Potassium Chloride 40 meq/ (Lactated Ringer's) 1,020 mls @ 250 mls/hr IV .Q4H5M PRN PRN Reason: K LEVEL < 3.3 mM/L Stop: 05/14/25 13:08 Potassium Chloride 40 meq/ (Dextrose/Lactated Ringer's) 1,020 mls @ 250 mls/hr IV .Q4H5M PRN PRN Reason: K LEVEL < 3.3mM/L Stop: 05/14/25 13:08 Potassium Cl/Dextrose/Lact Ringer's (Kcl 20 Meq/L In D5-Lr) 20 meq in 1,000 mls @ 250 mls/hr IV .Q4H PRN PRN Reason: K LEVEL 3.3 TO 5.3 mM/L Stop: 05/14/25 13:08 Potassium Chloride (Kcl Ivpb) 10 meq in 100 mls @ 50 mls/hr IV PRN PRN PRN Reason: K LEVEL 3.3 to 5.3 & BG > 200 Stop: 05/14/25 13:08 Potassium Phosphate (Pot Phos 15 Mmol In Ns 250 Ml) 15 mmol in 250 mls @ 62.5 mls/hr IV PRN PRN PRN Reason: Phosphate <= 1mg/dL Stop: 05/14/25 13:08 Sodium Phosphate 15 mmol/ (Sodium Chloride) 255 mls @ 62.5 mls/hr IV .Q4H5M PRN PRN Reason: Phosphate <= 1mg/dL and K> than 5.3 Stop: 05/14/25 13:08 Ondansetron HCl (Ondansetron Inj 2 Mg/Ml Inj 2 Ml) 4 mg IVP Q6H PRN; Protocol PRN Reason: NAUSEA OR VOMITING Stop: 05/14/25 08:10 Last Admin: 04/14/25 08:24 Dose: 4 mg Oxycodone/Acetaminophen (Oxycodone/Apap 5/325 Tablet) 1 tab PO Q6H PRN PRN Reason: PAIN SCALE 4-6 (Moderate Stop: 04/19/25 08:10 Pantoprazole Sodium (Pantoprazole Inj 40 Mg Vial) 40 mg IVP QDAY [facility] Stop: 05/14/25 08:59 Last Admin: 04/14/25 08:39 Dose: 40 mg Sertraline HCl (Sertraline Hcl 25 Mg Tablet) 100 mg PO DAILY [facility] Stop: 05/14/25 08:59 Last Admin: 04/14/25 10:26 Dose: Not Given Sodium Bicarbonate (Sodium Bicarb Inj 8.4% Syr 50 Ml Syringe) 50 ml IV Q4HR PRN PRN Reason: For ph <= to 7.0 Stop: 05/14/25 13:08 Discontinued Medications Dextrose (Dextrose 50%-Water Inj 50 Ml Syringe) 25 ml IV Q15MIN PRN PRN Reason: BG 50-70 responsive npo pt Stop: 05/14/25 08:12 Dextrose (Dextrose 50%-Water Inj 50 Ml Syringe) 50 ml IV Q15MIN PRN PRN Reason: BG <50 OR BG <70 & pt unresponsive Stop: 05/14/25 08:12 Glucagon (Glucagon Inj 1 Mg Vial) 1 mg IM Q15MIN PRN PRN Reason: BG <70, and no IV access Lactated Ringer's (Lactated Ringers) 1,000 mls @ 80 mls/hr IV .[id number] [facility] Stop: 05/14/25 08:11 Last Admin: 04/14/25 08:27 Dose: 80 mls/hr Lactated Ringer's (Lactated Ringers) 1,000 mls @ 250 mls/hr IV .Q4H [facility] Stop: 05/14/25 12:29 Last Admin: 04/14/25 12:53 Dose: Not Given Insulin Human Lispro (Insulin Lispro (Admelog) 1 Unit/0.01 Ml Unit) 0 unit SC ACHS KELLY; Protocol Stop: 05/14/25 11:29 Last Admin: 04/14/25 11:28 Dose: 3 unit Morphine Sulfate (Morphine Sulf Inj 10 Mg/Ml Vial) 4 mg IVP X1 ONE Stop: 04/14/25 03:04 Last Admin: 04/14/25 03:18 Dose: 4 mg Morphine Sulfate (Morphine Sulf Inj 10 Mg/Ml Vial) 2 mg IVP X1 ONE Stop: 04/14/25 08:12 Last Admin: 04/14/25 08:24 Dose: 2 mg Ondansetron HCl (Ondansetron Inj 2 Mg/Ml Inj 2 Ml) 4 mg IVP X1 ONE; Protocol Stop: 04/14/25 03:09 Last Admin: 04/14/25 03:18 Dose: 4 mg Assessment & Plan Plan Summary: Ms. Pineda is a 59-year-old female with past medical history of abdominal hernia with multiple adhesions in abdomen, gsw-sdgqybl-wxqpnnxvp type 2 diabetes mellitus, fibromyalgia, asthma, hypertension, hyperlipidemia, osteoarthritis and anemia who presented to [facility] emergency department on 04/14/2025 with a chief complaint of generalized abdominal pain. Patient on admission found to have SBO, was started on small bowel series, had elevated blood glucose levels hospitalist team checked CMP showed high anion gap and downtrending bicarb, patient admitted to ICU for close monitoring and DKA protocol. Neurological Alert and oriented x 3 #Dizziness Differential diagnosis: Dehydration, orthostatic hypotension, BPPV, heart failure, anemia Diagnostic workup: -Patient had 5 episodes of emesis, reported having dizziness for 1 day, likely attributable to dehydration Treatment: -IV fluids per DKA protocol Follow-up: - Follow-up after fluid resuscitation Cardiology #1+ lower extremity edema Differential diagnosis: Heart failure, lymphedema, venous insufficiency Diagnostic workup: -Patient has 1+ lower extremity edema bilaterally nonpitting Treatment: -Ordered echocardiogram as patient has not received extensive fluid resuscitation for DKA -Monitor for now #Hypertension Differential diagnosis: Primary hypertension, abdominal pain Diagnostic workup: -Patient has history of high blood pressure, primary hypertension reports taking hydrochlorothiazide and Lasix, pending med rec -Currently has significant abdominal pain Treatment: -Pain management -As needed medications of blood pressure significantly elevated -Hold p.o. meds in setting of SBO Follow-up: - Pending med reconciliation #Hyperlipidemia, by history Diagnostic workup: - Patient is on lovastatin Treatment: -Hold medication in setting of SBO -Order lipid panel for a.m. Follow-up: - Pending med reconciliation Pulmonary #Asthma by history Diagnostic workup: - Documented history of asthma, denies using any inhalers at home otherwise Treatment: -DuoNebs as needed -Currently stable on room air Gastrointestinal #Small bowel obstruction #Nausea and vomiting Diagnostic workup: -Abdomen distended on physical exam, reports history of nausea and vomiting -CT abdomen pelvis showing hernia defects, small bowel obstruction patent related to adhesions, -Small bowel series ordered and ED show contrast and dilated jejunal loops follow-up abdominal x-ray at 12 shows incomplete SBO -NG tube placed in ED, received low intermittent suctioning followed by Gastrografin series -History of multiple surgeries, has extensive adhesions per CT scan -Patient reports taking Ozempic for diabetes management, Ozempic is notorious for lowering gut motility Treatment: -Strict n.p.o. -Start low intermittent suctioning after last abdominal x-rays completed -Monitor for abdominal pain/distention -IV Tylenol for pain management -Monitor for bowel movement -Zofran as needed for nausea Follow-up: - Small bowel series - Follow for bowel movement #Transaminitis Differential diagnosis: DKA, dehydration, statin use, MERRITT Diagnostic workup: -Mild AST elevation 36, no history of any liver disease, synthetic liver function preserved Treatment: -DKA protocol, follow CMP in a.m. Renal/Genitourinary #High anion gap #Downtrending bicarb Differential diagnosis: Progressing to metabolic acidosis, underlying DKA Diagnostic workup: -CMP at noon showed anion gap 18, lactate within normal limits, VBG pH 7.36 Treatment: -DKA protocol Follow-up: - Lactate and renal panel every 4 hours Endocrine #Phc-wornonv-heypduceu diabetes mellitus #Mild diabetic ketoacidosis #Elevated beta hydroxybutyrate Differential diagnosis: Diabetic ketoacidosis, euglycemic DKA, starvation ketoacidosis Diagnostic workup: -Blood glucose significantly elevated noted to be in the higher 300s -Patient on Jardiance for diabetes management -Patient has progressive downtrending bicarb, elevated beta hydroxybutyrate at 4.2 -pH on VBG 7.36, almost acidotic, anion gap 18, urine glucose 4+ Treatment: -Insulin drip per DKA protocol -IV fluids per DKA protocol -N.p.o. for now Follow-up: - Follow renal panel every 4 hour, fingerstick blood glucose check every hour Hematology #Leukocytosis Likely reactive Diagnostic workup: -No underlying source of infection, currently in DKA, likely reactive -Ordered blood culture Treatment: -Follow CBC Infectious Disease #Asymptomatic bacteriuria Diagnostic workup: - No symptoms of urinary incontinence or discomfort -Urine positive for rare bacteria, yeast present Treatment: -No IV antibiotics Musculoskeletal #Fibromyalgia, by history #Osteoarthritis, by history Diagnostic workup: -Fibromyalgia by history Treatment: -Patient on sertraline, cyclobenzaprine, Hydroxyzine, hold in setting of SBO/DKA Follow-up: - Pending med rec DVT prophylaxis: Heparin every 8 hours GI prophylaxis: IV Protonix Diet: Strict n.p.o. Lines: Peripheral IV Code status: Full code Case discussed with Attending Dr. Oneill. Tra Adrian MD Internal Medicine Resident PGY2 Disclaimer: This note was dictated by speech recognition. Minor errors in environment coordinator may be present due to voice recognition software.
[2025-04-14] MEDS: RINGERS LACTATED 1000 ML 1,000 ML 200 ML IV (13:55)
[2025-04-14 14:35] LABS: Phosphorous 4.4 mg/dL (2.4-5.1)
[2025-04-14] MEDS: INSULIN REG 100 UNITS/100 ML 100 UNIT in PRE-MIXED 1 BAG 9.344 UNIT IV (14:44)
[2025-04-14] MEDS: POT CHL ADDITIVE 20 MEQ in RINGERS LACTATED 1000 ML 1,000 ML 250 MEQ IV (14:45)
--- NOTE | 2025-04-14 15:48 | ESCONSULT_ITS ---
HPI Data of Consult Requesting Physician: Iraj Phillips MD Admitting Provider: Iraj Phillips MD Attending Provider: Iraj Phillips MD Primary Care Provider: EMMY Dawson Consult Narrative Reason for consult: abdominal pain and vomiting History of present illness: 59-year-old female with a past medical history significant for diabetes mellitus, asthma, and multiple prior abdominal surgeries. She presented on 04/14 with complaints of abdominal pain and vomiting. The abdominal pain began approximately 24 hours ago. She describes the pain as generalized, constant, and stabbing in nature, with a severity rated at 10/10. The symptoms began shortly after eating. Associated symptoms include nausea and approximately five episodes of non-bloody, non-bilious vomiting with food contents. She also reports dizziness and profuse diaphoresis that coincided with the onset of abdominal pain. The patient reports normal bowel movements. She notes experiencing a similar episode in the past and was hospitalized on 04/21/2024 for comparable symptoms. Denies fever, hematemesis, hematochezia, dysuria, diarrhea, or constipation. cc:: cc: Iraj Phillips MD Review of Systems Review of Systems Narrative Review of Systems: All 12 systems assessed and the patient denies unless otherwise stated in HPI. Past Medical History Past Medical History Comments PMH COMMENT: Past Medical History: T2DM, asthma, arthritis, fibromyalgia Family History: Brother and sister with DM, father with stroke Surgical History: abdominal ventral hernia repair in 2006, 1993, tibial fracture repair Social History: Denies history of smoking, denies current alcohol use, denies recreational drug use. Lives at home with . Allergies: - Amoxicillin - hives, difficulty breathing - Penicillin - hives, difficulty breathing - Ibuprofen - swelling to legs Exam Vital Signs Temp Pulse Resp BP Pulse Ox O2 Del Method 98 F 109 H 19 141/97 H 95 Room Air 04/14/25 12:00 04/14/25 15:08 04/14/25 12:00 04/14/25 12:00 04/14/25 12:04/14/25 12:00 Narrative Exam Physical Exam General: Awake and in no acute distress. Conversational and non-toxic appearing. HEENT: Normocephalic, atraumatic Heart: Regular rate and rhythm, normal S1 and S2, no murmurs. Lungs: Clear to auscultation with no wheezing or crackles. Normal respiratory effort. Abdomen: Soft, distended, mild guarding and mild diffuse tenderness on palpation. Bowel sounds present. No rebound tenderness. scar present. Neurologic: Alert and oriented x3, no gross neurological deficit, and patient able to move all 4 extremities. Extremities: No edema. Skin: No rash or ecchymoses. Results Labs 04/15/25 07:04/15/25 10:44 Labs: Short CBC 04/14/25 Range/Units 03:20 WBC 12.3 H (3.6-11.0) Thou/mm3 Hgb 13.2 (12.0-16.0) g/dL Hct 41.4 (36.0-46.0) % Plt Count 234 (140-440) Thou/mm3 BMP 04/14/25 04/14/25 03:20 11:39 Sodium 139 145 Potassium 4.0 4.1 Chloride 100 105 Carbon Dioxide 25.0 21.9 BUN 7 L 10 Creatinine 0.8 0.8 Glucose 378 H 345 H Calcium 9.7 9.4 Liver Function 04/14/25 04/14/25 Range/Units 03:20 11:39 Total Bilirubin 0.6 0.4 (0.3-1.2) mg/dL AST 40 H 36 H (0-34) U/L ALT 42 39 (10-49) U/L Alkaline Phosphatase 138 H 131 H (46-116) U/L Albumin 4.7 4.4 (3.4-4.8) gm/dL Urine 04/14/25 Range/Units 06:42 Urine Color Colorless A (Lt Yel-Yel) Urine Clarity Clear (Clear/Hazy) Urine pH 6.0 (5.0-7.0) Ur Specific Olin 1.037 H (1.001-1.035) Urine Protein Negative (Neg - Trace) Urine Glucose (UA) 4+ A (Negative) ABG Interpretation ABG results: 04/14/25 13:05 ABG pH 7.36 ABG pCO2 43 ABG pO2 63 L ABG HCO3 25 ABG O2 Saturation 92 ABG Base Excess -1 Quality Measures Quality Measures none Medications Home Medications and Allergies Home Medications ?Medication ?Instructions ?Recorded ?Confirmed ?Type lovastatin 40 mg tablet 40 mg PO HS High Cholesterol #0 07/25/14 04/15/25 History tabs cyclobenzaprine 10 mg tablet 10 mg PO HS 04/21/2404/05 History empagliflozin 25 mg tablet 25 mg PO DAILY 04/21/2408/30 History (Jardiance) ergocalciferol (vitamin D2) 1,250 1,250 mcg PO QWEEK 0 04/21/24 04/15/25 History mcg (50,000 unit) capsule ferrous sulfate 325 mg (65 mg 325 mg PO AC 04/21/24 History iron) tablet (FeroSul) hydroxyzine HCl 50 mg tablet 50 mg PO HS 04/21/2404/05 History meloxicam 15 mg tablet 15 mg PO HS 04/21/24 5 History omeprazole 20 mg capsule,delayed 20 mg PO DAILY 04/15/25 History release semaglutide 2 mg/dose (8 mg/3 mL) 2 mg subcut QWEEK 04/15/25 History subcutaneous pen injector (Ozempic) sertraline 100 mg tablet 100 mg PO DAILY 04/21/2408/30 History Allergies Allergy/AdvReac Type Severity Reaction Status Date / Time amoxicillin Allergy Severe DIFF Verified 06/15/20 03:47 BREATHING, HIVES Penicillins Allergy Severe DIFF Verified 06/15/20 03:47 BREATHING, HIVES ibuprofen Allergy Intermediate SWELLING Verified 06/15/20 03:47 TO LEGS Visit Medications Acetaminophen (Acetaminophen 325 Mg Tablet) 650 mg PO Q6H PRN PRN Reason: PAIN SCALE 1-3 (mild Stop: 05/14/25 08:10 Acetaminophen (Acetaminophen 325 Mg Tablet) 650 mg PO Q6H PRN PRN Reason: Fever >100.4 Stop: 05/14/25 08:10 Hydrocodone Bitart/Acetaminophen (Hydrocodone/Apap 10/325 Tab) 1 tab PO Q4HR PRN PRN Reason: PAIN SCALE 7-10 (Severe Stop: 04/19/25 08:10 Atorvastatin Calcium (Atorvastatin Calcium 10 Mg Tablet) 10 mg PO HS KELLY Stop: 05/14/25 20:59 Cyclobenzaprine HCl (Cyclobenzaprine 5 Mg Tablet) 10 mg PO HS KELLY Stop: 05/14/25 20:59 Dextrose (Dextrose 50%-Water Inj 50 Ml Syringe) 25 ml IV [id number] PRN PRN Reason: Blood Sugar - Low Heparin Sodium (Porcine) (Heparin Sod Inj 5000 Unit/Ml Vial) 5,000 unit SC BID [facility] Stop: 04/28/25 08:59 Last Admin: 04/14/25 08:39 Dose: 5,000 unit Hydroxyzine HCl (Hydroxyzine Hcl 25 Mg Tablet) 50 mg PO HS [facility] Stop: 05/14/25 20:59 Lactated Ringer's (Lactated Ringers) 1,000 mls @ 200 mls/hr IV .Q5H KELLY Stop: 05/14/25 12:44 Last Infusion: 04/14/25 14:52 Dose: Infused Potassium Chloride (Kcl Ivpb) 10 meq in 100 mls @ 100 mls/hr IV .Q1H PRN PRN Reason: IF POTASSIUM LESS THAN 3.3 Stop: 05/14/25 13:08 Magnesium Sulfate (Magnesium Sulfate Ivpb) 2 gm in 50 mls @ 25 mls/hr IV .Q2H PRN PRN Reason: PER DKA PROTOCOL Stop: 05/14/25 13:08 Insulin Human Regular 100 unit (/ IV Miscellaneous Supplies) 100 mls @ 9.344 mls/hr IV .[id number] PRN; Protocol PRN Reason: PER PROTOCOL Stop: 05/14/25 13:08 Last Admin: 04/14/25 14:44 Dose: 0.1 unit/kg/hr, 9.344 mls/hr Dextrose/Lactated Ringer's (D5-Lr) 1,000 mls @ 250 mls/hr IV .Q4H PRN PRN Reason: PER PROTOCOL Stop: 05/14/25 13:08 Lactated Ringer's (Lactated Ringers) 1,000 mls @ 250 mls/hr IV .Q4H PRN PRN Reason: PER PROTOCOL Stop: 04/15/25 13:08 Potassium Chloride 20 meq/ (Lactated Ringer's) 1,010 mls @ 250 mls/hr IV .Q4H3M PRN PRN Reason: K LEVEL 3.3 TO 5.3mM/L Stop: 05/14/25 13:08 Last Admin: 04/14/25 14:45 Dose: 250 mls/hr Potassium Chloride 40 meq/ (Lactated Ringer's) 1,020 mls @ 250 mls/hr IV .Q4H5M PRN PRN Reason: K LEVEL < 3.3 mM/L Stop: 05/14/25 13:08 Potassium Chloride 40 meq/ (Dextrose/Lactated Ringer's) 1,020 mls @ 250 mls/hr IV .Q4H5M PRN PRN Reason: K LEVEL < 3.3mM/L Stop: 05/14/25 13:08 Potassium Cl/Dextrose/Lact Ringer's (Kcl 20 Meq/L In D5-Lr) 20 meq in 1,000 mls @ 250 mls/hr IV .Q4H PRN PRN Reason: K LEVEL 3.3 TO 5.3 mM/L Stop: 05/14/25 13:08 Potassium Chloride (Kcl Ivpb) 10 meq in 100 mls @ 50 mls/hr IV PRN PRN PRN Reason: K LEVEL 3.3 to 5.3 & BG > 200 Stop: 05/14/25 13:08 Potassium Phosphate (Pot Phos 15 Mmol In Ns 250 Ml) 15 mmol in 250 mls @ 62.5 mls/hr IV PRN PRN PRN Reason: Phosphate <= 1mg/dL Stop: 05/14/25 13:08 Sodium Phosphate 15 mmol/ (Sodium Chloride) 255 mls @ 62.5 mls/hr IV .Q4H5M PRN PRN Reason: Phosphate <= 1mg/dL and K> than 5.3 Stop: 05/14/25 13:08 Ondansetron HCl (Ondansetron Inj 2 Mg/Ml Inj 2 Ml) 4 mg IVP Q6H PRN; Protocol PRN Reason: NAUSEA OR VOMITING Stop: 05/14/25 08:10 Last Admin: 04/14/25 08:24 Dose: 4 mg Oxycodone/Acetaminophen (Oxycodone/Apap 5/325 Tablet) 1 tab PO Q6H PRN PRN Reason: PAIN SCALE 4-6 (Moderate Stop: 04/19/25 08:10 Pantoprazole Sodium (Pantoprazole Inj 40 Mg Vial) 40 mg IVP QDAY [facility] Stop: 05/14/25 08:59 Last Admin: 04/14/25 08:39 Dose: 40 mg Sertraline HCl (Sertraline Hcl 25 Mg Tablet) 100 mg PO DAILY [facility] Stop: 05/14/25 08:59 Last Admin: 04/14/25 10:26 Dose: Not Given Sodium Bicarbonate (Sodium Bicarb Inj 8.4% Syr 50 Ml Syringe) 50 ml IV Q4HR PRN PRN Reason: For ph <= to 7.0 Stop: 05/14/25 13:08 Discontinued Medications Dextrose (Dextrose 50%-Water Inj 50 Ml Syringe) 25 ml IV Q15MIN PRN PRN Reason: BG 50-70 responsive npo pt Stop: 05/14/25 08:12 Dextrose (Dextrose 50%-Water Inj 50 Ml Syringe) 50 ml IV Q15MIN PRN PRN Reason: BG <50 OR BG <70 & pt unresponsive Stop: 05/14/25 08:12 Glucagon (Glucagon Inj 1 Mg Vial) 1 mg IM Q15MIN PRN PRN Reason: BG <70, and no IV access Lactated Ringer's (Lactated Ringers) 1,000 mls @ 80 mls/hr IV .[id number] [facility] Stop: 05/14/25 08:11 Last Admin: 04/14/25 08:27 Dose: 80 mls/hr Lactated Ringer's (Lactated Ringers) 1,000 mls @ 999 mls/hr IV .Q1H1M ONE Stop: 04/14/25 13:29 Last Infusion: 04/14/25 13:56 Dose: Infused Lactated Ringer's (Lactated Ringers) 1,000 mls @ 250 mls/hr IV .Q4H [facility] Stop: 05/14/25 12:29 Last Admin: 04/14/25 12:53 Dose: Not Given Insulin Human Lispro (Insulin Lispro (Admelog) 1 Unit/0.01 Ml Unit) 0 unit SC [facility]; Protocol Stop: 05/14/25 11:29 Last Admin: 04/14/25 11:28 Dose: 3 unit Morphine Sulfate (Morphine Sulf Inj 10 Mg/Ml Vial) 4 mg IVP X1 ONE Stop: 04/14/25 03:04 Last Admin: 04/14/25 03:18 Dose: 4 mg Morphine Sulfate (Morphine Sulf Inj 10 Mg/Ml Vial) 2 mg IVP X1 ONE Stop: 04/14/25 08:12 Last Admin: 04/14/25 08:24 Dose: 2 mg Ondansetron HCl (Ondansetron Inj 2 Mg/Ml Inj 2 Ml) 4 mg IVP X1 ONE; Protocol Stop: 04/14/25 03:09 Last Admin: 04/14/25 03:18 Dose: 4 mg Assessment & Plan Plan 49-year-old female with a history of type 2 diabetes mellitus and multiple abdominal surgeries presenting with 24 hours of abdominal pain and vomiting, concerning for possible diabetic ketoacidosis and small bowel obstruction. #Hyperglycemia #[place]ley Diabetic Ketoacidosis - beta-hydroxybutyrate 4.2, bicarb 25.0, potassium 4.0, anion gap 18, glucose 378, urine glucose 4+, and urine ketones 3+ - Plan - Continue IV LR - Continue sliding scale insulin # Abdominal Hernia - CT abdomen/pelvis: Supra-umbilical 6.6 cm hernia defect containing transverse colon and second ventral right hernia defect, 6.8 cm which contains small bowel #Small Bowel Obstruction - CT abdomen/pelvis: Small bowel obstruction pattern, like due to adhesions - Gastrografin small bowel series: incomplete small bowel obstruction - Plan - Continue NG tube - Continue IV fluids - NPO - Rec colonoscopy prior to discharge or outpatient Patient plan of care was discussed attending physician, . Yane Figueroa DO, PGY-1 Attending Provider Attestation/Addendum Patient examined in the ICU All x-rays and imaging studies reviewed Case discussed in detail with the internal medicine resident Treatment plan outlined which includes NGT to intermittent suction Gastrografin small bowel follow-through Will follow the patient closely Thank you for the opportunity to participate in the care of this patient
[2025-04-14] MEDS: KCL 20 mEq/L in D5-LR 20 MEQ/1,000 ML BAG 250 MEQ IV ×2 (17:31→21:48)
[2025-04-14 18:06] LABS: Base Excess, Venous 4 (-3-3); O2 Saturation, Venous 94 % (96-97); PCO2, Venous 33 mmHg (36-56); PO2, Venous 63 mmHg (15-58); pH, Venous 7.51 (7.33-7.66)
[2025-04-14 18:07] LABS: Lactate (Lactic Acid) 1.3 mMol/L (0.4-2.0)
[2025-04-14] MEDS: ACETAMINOPHEN IVPB 1,000 MG/100 ML VIAL 250 MG IV (18:07)
[2025-04-14 20:13] LABS: Albumin, Serum 3.8 gm/dL (3.4-4.8); Anion Gap 9 (7-16); BUN/Creatinine Ratio 17 Ratio (12-20); Blood Urea Nitrogen 10 mg/dL (9-23); Calcium 8.5 mg/dL (8.3-10.6); Calcium (Corrected) 8.7 mg/dL (8.5-10.1); Carbon Dioxide 28.1 mMol/L (20.0-31.0); Chloride 110 mMol/L (98-107); Creatinine (Component) 0.6 mg/dL (0.6-1.3); Estimated Creatinine Clearance 94.1 mL/min (>60); Glucose 172 mg/dL (74-106); Magnesium 1.5 mg/dL (1.6-2.6); Osmolality,Calculated 295 (275-295); Phosphorous 1.9 mg/dL (2.4-5.1); Potassium 3.9 mMol/L (3.4-5.1); Sodium 147 mMol/L (136-145); eGFR > 60 See Note
[2025-04-14] MEDS: Magnesium Sulfate 2 GM Ivpb 2 GM/50 ML BAG IV (20:32)
[2025-04-14 22:40] LABS: Base Excess, Venous 5 (-3-3); Lactate (Lactic Acid) 0.9 mMol/L (0.4-2.0); O2 Saturation, Venous 93 % (96-97); PCO2, Venous 40 mmHg (36-56); PO2, Venous 57 mmHg (15-58); pH, Venous 7.47 (7.33-7.66)
[2025-04-14 23:02] LABS: Albumin, Serum 3.7 gm/dL (3.4-4.8); Anion Gap 11 (7-16); BUN/Creatinine Ratio 17 Ratio (12-20); Blood Urea Nitrogen 10 mg/dL (9-23); Calcium 8.9 mg/dL (8.3-10.6); Calcium (Corrected) 9.1 mg/dL (8.5-10.1); Carbon Dioxide 28.5 mMol/L (20.0-31.0); Chloride 110 mMol/L (98-107); Creatinine (Component) 0.6 mg/dL (0.6-1.3); Estimated Creatinine Clearance 94.1 mL/min (>60); Glucose 160 mg/dL (74-106); Magnesium 2.7 mg/dL (1.6-2.6); Osmolality,Calculated 298 (275-295); Phosphorous 2.1 mg/dL (2.4-5.1); Potassium 4.0 mMol/L (3.4-5.1); Sodium 149 mMol/L (136-145); eGFR > 60 See Note
[2025-04-15] VITALS (30 sets, daily range): BP systolic 118–161; BP diastolic 76–134; PULSE 76–112; RESP 14–27; TEMP 36.4–36.8; O2SAT 87–99; BMI 54.0
[2025-04-15 02:47] LABS: Albumin, Serum 3.5 gm/dL (3.4-4.8); Anion Gap 10 (7-16); BUN/Creatinine Ratio 13 Ratio (12-20); Blood Urea Nitrogen 8 mg/dL (9-23); Calcium 8.2 mg/dL (8.3-10.6); Calcium (Corrected) 8.6 mg/dL (8.5-10.1); Carbon Dioxide 27.9 mMol/L (20.0-31.0); Chloride 111 mMol/L (98-107); Creatinine (Component) 0.6 mg/dL (0.6-1.3); Estimated Creatinine Clearance 94.1 mL/min (>60); Glucose 135 mg/dL (74-106); Magnesium 1.9 mg/dL (1.6-2.6); Osmolality,Calculated 296 (275-295); Phosphorous 1.9 mg/dL (2.4-5.1); Potassium 4.1 mMol/L (3.4-5.1); Sodium 149 mMol/L (136-145); eGFR > 60 See Note
--- NOTE | 2025-04-15 02:48 | XR_ITS ---
Examination: Abdomen AP single view Technique: AP portable supine abdomen, single view Exam date and time: April 14, 2025 0936 hours INDICATIONS: Abdominal pain and distention this week, small bowel series April 14, 2025 FINDINGS: Contrast entirely in the colon on this study IMPRESSION: Negative for small bowel obstruction
--- NOTE | 2025-04-15 05:00 | ECHO_ITS ---
Transthoracic Echo Report Ht (in): 52 Wt (lb): 206 Exam Location: Echo Lab Status: Inpatient [employer] Director: Radha Martinez Indications: Procedure Performed: BP: 155 / 90 HR: 95 Technical Quality: Techncially Difficult Due to Pt Supine MEASUREMENTS (Male / Female) Normal Values 2D ECHO LV Diastolic Diameter PLAX 4.0 cm 4.2 - 5.9 / 3.9 - 5.3 cm LV Systolic Diameter PLAX 1.8 cm IVS Diastolic Thickness 0.7 cm 0.6 - 1.0 / 0.6 - 0.9 cm LVPW Diastolic Thickness 0.7 cm 0.6 - 1.0 / 0.6 - 0.9 cm LV Relative Wall Thickness 0.3 LVOT Diameter 1.7 cm LA Volume Index 26.2 cm?/m? 16 - 28 cm?/m? M-MODE AV Cusp Separation MM 1.4 cm DOPPLER AV Peak Velocity 175.0 cm/s AV Peak Gradient 12.3 mmHg AI Peak Velocity 322.0 cm/s AI Peak Gradient 41.5 mmHg AI Pressure Half Time 710.0 ms LVOT Peak Velocity 113.0 cm/s LVOT Peak Gradient 5.1 mmHg AV Area Cont Eq pk 1.5 cm? MV Area PHT 7.1 cm? Mitral E Point Velocity 121.0 cm/s Mitral A Point Velocity 97.4 cm/s Mitral E to A Ratio 1.2 LV E' Lateral Velocity 9.1 cm/s Mitral E to LV E' Lateral Ratio 13.2 LV E' Septal Velocity 7.7 cm/s Mitral E to LV E' Septal Ratio 15.7 TR Peak Velocity 224.0 cm/s TR Peak Gradient 20.1 mmHg PV Peak Velocity 126.0 cm/s PV Peak Gradient 6.4 mmHg FINDINGS Left Ventricle Normal left ventricular size, wall thickness, systolic function with no obvious regional wall motion abnormalities. Normal left ventricular diastolic filling pattern for age. The ejection fraction is visually estimated at 55 %. Right Ventricle The right ventricle is normal in size and systolic function. The estimated right ventricular systolic pressure, 20 mmHg. Left Atrium The left atrium is normal by two-dimensional, color flow and Doppler imaging with no structural abnormalities, no thrombus formation present. Right Atrium The right atrium is normal by two-dimensional imaging, color flow and Doppler imaging with no structural abnormalities, no thrombus formation present. Atrial Septum The interatrial septum appears normal with no evidence of a shunt. Aorta The aorta is normal by two-dimensional, color flow and Doppler interrogation. Mitral Valve The mitral valve is normal by two-dimensional, color flow and Doppler interrogation. There is mild mitral valve regurgitation. Aortic Valve The aortic valve is trileaflet and mildly sclerotic without stenosis. There is trace aortic valve regurgitation. Tricuspid Valve The tricuspid valve is normal by two-dimensional, color flow and Doppler interrogation. There is trace tricuspid valve regurgitation. Pulmonic Valve The pulmonic valve is not well visualized. There is no significant pulmonic valve regurgitation. Vessels The pulmonary artery appears normal. The inferior vena cava is dilated with >50% collapse. Pericardium The pericardium is normal by two-dimensional imaging. There is no significant pericardial effusion. CONCLUSIONS Indications: BLE Edema Normal left ventricular size and function. Approximate ejection fraction is 55%. RV Normal. RVSP 20mmHg. Mild mitral regurgitation Mild aortic valve sclerosis with mild aortic regurgitation Sclerosis. Mild TR IVC Dilation with >50% Collapse. No Pericardial Effusion. Mayelin Contreras (Electronically Signed) Final Date: 15 April 2025 19:23
[2025-04-15] MEDS: HEPARIN SOD INJ 5000 UNIT/ML VIAL SC ×3 (05:57→22:15)
[2025-04-15] MEDS: KCL 20 mEq/L in D5-LR 20 MEQ/1,000 ML BAG 250 MEQ IV (06:18)
[2025-04-15] MEDS: ACETAMINOPHEN IVPB 1,000 MG/100 ML VIAL 250 MG IV (06:20)
[2025-04-15 07:34] LABS: Base Excess, Venous 4 (-3-3); Lactate (Lactic Acid) 1.2 mMol/L (0.4-2.0); O2 Saturation, Venous 93 % (96-97); PCO2, Venous 42 mmHg (36-56); PO2, Venous 57 mmHg (15-58); pH, Venous 7.45 (7.33-7.66)
[2025-04-15 07:40] LABS: Basophils # (Auto) 0.0 Thou/mm3 (0.0-0.2); Basophils % (Auto) 0 % (0-2.5); Beta Hydroxybutyrate 0.0 mmol/L (<0.6); Eosinophils # (Auto) 0.1 Thou/mm3 (0.0-0.5); Eosinophils % (Auto) 1 % (0-10); Hematocrit 33.3 % (36.0-46.0); Hemoglobin 10.3 g/dL (12.0-16.0); Immature Granulocytes Auto 0.05 Thou/mm3 (0.00-0.00); Lymphocytes # (Auto) 2.3 Thou/mm3 (1.0-4.8); Lymphocytes % (Auto) 29 % (10-50); Mean Corpuscular HGB Conc 30.9 g/dl (31.0-37.0); Mean Corpuscular Hemoglobin 22.8 pg (25.0-35.0); Mean Corpuscular Volume 74 fL (80-100); Monocytes # (Auto) 0.4 Thou/mm3 (0.0-0.8); Monocytes % (Auto) 5 % (0-12); Neutrophils # (Auto) 5.2 Thou/mm3 (1.8-7.7); Neutrophils % (Auto) 64 % (37-80); Nucleated Red Blood Cell # 0.00 Thou/mm3 (0.00-0.00); Nucleated Red Blood Cell % 0 /100 WBC (0); Platelet Count 199 Thou/mm3 (140-440); RDW Standard Deviation 47.9 fL (36.4-46.3); Red Blood Count 4.52 Miln/mm3 (4.00-5.20); White Blood Count 8.2 Thou/mm3 (3.6-11.0)
[2025-04-15 07:59] LABS: Glucose Estimated Average 246 mg/dL (80-131); Hemoglobin A1C 10.2 % Hgb (4.8-6.0)
[2025-04-15 09:51] LABS: Alanine Aminotransferase 26 U/L (10-49); Albumin, Serum 3.4 gm/dL (3.4-4.8); Albumin/Globulin Ratio 1.2 (1.2-2.2); Alkaline Phosphatase 89 U/L (46-116); Anion Gap 9 (7-16); Aspartate Amino Transferase 25 U/L (0-34); BUN/Creatinine Ratio 12 Ratio (12-20); Bilirubin,Total 0.3 mg/dL (0.3-1.2); Blood Urea Nitrogen 6 mg/dL (9-23); Calcium 8.1 mg/dL (8.3-10.6); Calcium (Corrected) 8.6 mg/dL (8.5-10.1); Carbon Dioxide 26.5 mMol/L (20.0-31.0); Cardiac Risk Estimate 2.8 RATIO (3.7-5.6); Chloride 111 mMol/L (98-107); Cholesterol 142 mg/dL (132-200); Creatinine (Component) 0.5 mg/dL (0.6-1.3); Estimated Creatinine Clearance 114.8 mL/min (>60); Globulin 2.8 gm/dL (2.3-3.5); Glucose 142 mg/dL (74-106); HDL Cholesterol 50 mg/dL (40-60); LDH (Lactate Dehydrogenase) 120 U/L (120-246); LDL Cholesterol,Calculated 69 mg/dL (0-130); Magnesium 1.7 mg/dL (1.6-2.6); Osmolality,Calculated 290 (275-295); Phosphorous 1.5 mg/dL (2.4-5.1); Potassium 4.0 mMol/L (3.4-5.1); Sodium 146 mMol/L (136-145); Total Protein 6.2 gm/dL (5.7-8.2); Triglycerides 117 mg/dL (30-150); eGFR > 60 See Note
[2025-04-15] MEDS: POT PHOS 15 mMol in NS 250 ML 15 MMOL/250 ML BAG 62.5 MMOL IV ×2 (09:56→14:40)
[2025-04-15 10:40] LABS: Ferritin 9 ng/mL (7.3-270.7); Iron 13 mcg/dL (50-170); Percent Iron Saturation 4 % (20-55); Total Iron Binding Capacity 289 mcg/dL (250-425); Unsaturated Iron Binding 276 (225-295)
[2025-04-15] MEDS: INSULIN GLARGINE (Lantus) 5 UNIT/0.05 ML (PER 5 UNITS) 22 UNIT SC (10:48)
[2025-04-15 11:41] LABS: Albumin, Serum 3.5 gm/dL (3.4-4.8); Anion Gap 8 (7-16); BUN/Creatinine Ratio 10 Ratio (12-20); Blood Urea Nitrogen 5 mg/dL (9-23); Calcium 8.3 mg/dL (8.3-10.6); Calcium (Corrected) 8.7 mg/dL (8.5-10.1); Carbon Dioxide 29.2 mMol/L (20.0-31.0); Chloride 108 mMol/L (98-107); Creatinine (Component) 0.5 mg/dL (0.6-1.3); Estimated Creatinine Clearance 114.8 mL/min (>60); Glucose 114 mg/dL (74-106); Magnesium 1.5 mg/dL (1.6-2.6); Osmolality,Calculated 286 (275-295); Phosphorous 2.1 mg/dL (2.4-5.1); Potassium 4.4 mMol/L (3.4-5.1); Sodium 145 mMol/L (136-145); eGFR > 60 See Note
--- NOTE | 2025-04-15 12:14 | ESPR_ITS ---
Documentation for date of: 04/15/25 Subjective Subjective Interval history: Ms. Pineda is a 59-year-old female with past medical history of abdominal hernia with multiple adhesions in abdomen, [id number] type 2 diabetes mellitus, fibromyalgia, asthma, hypertension, hyperlipidemia, osteoarthritis and anemia who presented to [facility] emergency department on 04/14/2025 with a chief complaint of generalized abdominal pain. Patient reported that her symptoms started yesterday, sudden in onset and progressively got worse, reports that she was in significant pain and distress since yesterday, though did have 2 bowel movements. This morning her abdomen became more distended she had severe pain and decided to come to the emergency department for evaluation, patient reports underlying chills dizziness nausea and vomiting associated with her abdominal pain reports that she had about 5 episodes of nonbloody emesis, denies any blood in stool as well. Patient reports that she was fairly well prior to yesterday, denies any sick contacts, shortness of breath, chest pain, near-syncope, syncope, headache, any urinary symptoms and diarrhea. ED Course: ED Vitals: On presentation in ED patient's blood pressure 156/99, heart rate 110, respirate rate 18, temp 98, O2 sat 98 on room air. ED Labs: ED labs show WBC 12.3, RBC 5.82, MCV 71, MCH 22.7, sodium 139, potassium 4.0, chloride 100, bicarb 25, anion gap 14, BUN 7, creatinine 0.8, GFR greater than 60, glucose 378, osmolality 291, calcium 9.7, magnesium 1.9, AST 40, alk phos 138, total protein 8.5, globulin 3.8 ED Imaging: Imaging in ED showed CT abdomen pelvis showing hernia defects, small bowel obstruction patent related to adhesions, small bowel series ordered and ED show contrast and dilated jejunal loops follow-up abdominal x-ray at 12 shows incomplete SBO, chest x-ray in ED shows OG tube in satisfactory position and EKG in ED shows sinus tachycardia, QTc 465 ED Treatment: Patient was given morphine 4 mg x 2, Zofran 4 mg x 2 in ED Patient was admitted to the [facility] floor by hospitalist team earlier this morning, due to concern of patient's blood glucose being significantly elevated and 300s, CMP was repeated by hospitalist team showing anion gap of 18 and the bicarb was downtrending. Urine glucose 4 positive, ketones 3 positive. Beta hydroxybutyrate was elevated to 4.2 patient was noted to be progressing towards diabetic ketoacidosis, decision was made to transfer patient to intensive care unit for DKA management. 04/15/2025: Patient seen and examined at bedside today, no overnight events. Patient's gap closed x 4 since midnight, abdominal x-ray shows contrast in colon, patient had bowel movement x 1, denies any abdominal pain currently. Blood glucose well-controlled overnight on insulin drip, patient will be given Lantus 22 units subcutaneous along with sliding scale insulin, A1c 10.2 this morning. Phosphate and magnesium replaced today. Patient on Ozempic and iron pills which can slow gut motility, recommend following up with PCP before resuming. Patient's iron panel shows significant iron depletion iron 13, TIBC 289, iron saturation 4%, iron sat iron binding 276, ferritin 9. Considering patient can get constipation from iron tablets, consider IV iron prior to discharge. Continue to monitor fingerstick ACHS, diabetic education and dietitian consulted. Lipid panel shows LDL 69. Patient is stable to be downgraded to med surg, Exam Vital Signs Temp Pulse Resp BP Pulse Ox O2 Del Method 98.0 F 97 14 123/78 96 Room Air 04/15/25 10:05 04/15/25 11:00 04/15/25 11:00 04/15/25 11:00 04/15/25 11:00 04/15/25 11:00 Narrative Exam Physical Exam General: Awake and in no acute distress. Conversational and non-toxic appearing. HEENT: Normocephalic, atraumatic, mucous membranes moist. NG tube noted. Heart: Regular Rate and Rhythm, no murmurs. Lungs: Clear to auscultation with no wheezing or crackles. Decreased breath sounds bilateral lower lobes. Abdomen: Soft, distended, nontender, no bowel sounds. ?No guarding or rebound tenderness. Neurologic: Alert and oriented x3, no gross neurological deficit, and patient able to move all 4 extremities. Extremities: 1+ bilateral lower extremity edema Skin: No rash or ecchymoses. Objective Labs 04/16/25 05:40 04/16/25 05:40 Labs: Laboratory Results - last 24 hr 04/14/25 04/14/25 04/14/25 11:39 12:43 13:05 WBC RBC Hgb Hct MCV MCH MCHC RDW Std Deviation Plt Count Neut % (Auto) Lymph % (Auto) [place] % (Auto) Eos % (Auto) Baso % (Auto) Neut # (Auto) Lymph # (Auto) [place] # (Auto) Eos # (Auto) Baso # (Auto) Immature Gran # (Auto) Absolute Nucleated RBC Immature Gran % Nucleated RBC % Puncture Site Right Radial ABG pH 7.36 ABG pCO2 43 ABG pO2 63 L ABG HCO3 25 ABG O2 Saturation 92 ABG Base Excess -1 VBG pH VBG pCO2 VBG pO2 VBG O2 Sat (Percy) VBG Base Excess FiO2 21 Sodium 145 Potassium 4.1 Chloride 105 Carbon Dioxide 21.9 Anion Gap 18 H BUN 10 Creatinine 0.8 Estim Creat Clear Calc 71.5 eGFR > 60 BUN/Creatinine Ratio [address] Glu mg/dL Hemoglobin A1c Calculated Osmolality 301 H Lactic Acid 1.6 Calcium 9.4 Corrected Calcium 9.4 Phosphorus 4.4 Magnesium Iron TIBC Iron Saturation Unsat Iron Binding Ferritin Total Bilirubin 0.4 AST 36 H ALT 39 Alkaline Phosphatase 131 H Lactate Dehydrogenase Total Protein 8.0 Albumin 4.4 Globulin 3.6 H Albumin/Globulin Ratio 1.2 Triglycerides Cholesterol LDL Cholesterol, Calc HDL Cholesterol Cholesterol/HDL Ratio Beta-Hydroxybutyrate/Acetoacetate 04/14/25 04/14/25 04/14/25 17:51 18:35 22:32 WBC RBC Hgb Hct MCV MCH MCHC RDW Std Deviation Plt Count Neut % (Auto) Lymph % (Auto) [place] % (Auto) Eos % (Auto) Baso % (Auto) Neut # (Auto) Lymph # (Auto) [place] # (Auto) Eos # (Auto) Baso # (Auto) Immature Gran # (Auto) Absolute Nucleated RBC Immature Gran % Nucleated RBC % Puncture Site ABG pH ABG pCO2 ABG pO2 ABG HCO3 ABG O2 Saturation ABG Base Excess VBG pH 7.51 7.47 VBG pCO2 33 L 40 VBG pO2 63 H 57 VBG O2 Sat (Percy) 94 L 93 L VBG Base Excess 4 H 5 H FiO2 Sodium 147 H 149 H Potassium 3.9 4.0 Chloride 110 H 110 H Carbon Dioxide 28.1 28.5 Anion Gap 9 11 BUN 10 10 Creatinine 0.6 0.6 Estim Creat Clear Calc 94.1 94.1 eGFR > 60 > 60 BUN/Creatinine Ratio 17 17 Glucose 172 H D [address] Glu mg/dL Hemoglobin A1c Calculated Osmolality 295 298 H Lactic Acid 1.3 0.9 Calcium 8.5 8.9 Corrected Calcium 8.7 9.1 Phosphorus 1.9 L 2.1 L Magnesium 1.5 L 2.7 H Iron TIBC Iron Saturation Unsat Iron Binding Ferritin Total Bilirubin AST ALT Alkaline Phosphatase Lactate Dehydrogenase Total Protein Albumin 3.8 D 3.7 Globulin Albumin/Globulin Ratio Triglycerides Cholesterol LDL Cholesterol, Calc HDL Cholesterol Cholesterol/HDL Ratio Beta-Hydroxybutyrate/Acetoacetate 04/15/25 04/15/25 04/15/25 02:16 07:25 10:44 WBC 8.2 RBC 4.52 Hgb 10.3 L D Hct 33.3 L MCV 74 L MCH 22.8 L MCHC 30.9 L RDW Std Deviation 47.9 H Plt Count 199 D Neut % (Auto) 64 Lymph % (Auto) 29 [place] % (Auto) 5 Eos % (Auto) 1 Baso % (Auto) 0 Neut # (Auto) 5.2 Lymph # (Auto) 2.3 [place] # (Auto) 0.4 Eos # (Auto) 0.1 Baso # (Auto) 0.0 Immature Gran # (Auto) 0.05 H Absolute Nucleated RBC 0.00 Immature Gran % 1 H Nucleated RBC % 0 Puncture Site ABG pH ABG pCO2 ABG pO2 ABG HCO3 ABG O2 Saturation ABG Base Excess VBG pH 7.45 VBG pCO2 42 VBG pO2 57 VBG O2 Sat (Percy) 93 L VBG Base Excess 4 H FiO2 Sodium 149 H 146 H 145 Potassium 4.1 4.0 4.4 Chloride 111 H 111 H 108 H Carbon Dioxide 27.9 26.5 29.2 Anion Gap 10 9 8 BUN 8 L 6 L 5 L Creatinine 0.6 0.5 L 0.5 L Estim Creat Clear Calc 94.1 114.8 114.8 eGFR > 60 > 60 > 60 BUN/Creatinine Ratio 13 12 10 L Glucose 135 H [address] Glu mg/dL 246 H Hemoglobin A1c 10.2 H Calculated Osmolality 296 H 290 286 Lactic Acid 1.2 Calcium 8.2 L 8.1 L 8.3 Corrected Calcium 8.6 8.6 8.7 Phosphorus 1.9 L 1.5 L 2.1 L Magnesium 1.9 1.7 1.5 L Iron 13 L TIBC 289 Iron Saturation 4 L Unsat Iron Binding 276 Ferritin 9 Total Bilirubin 0.3 AST 25 ALT 26 Alkaline Phosphatase 89 D Lactate Dehydrogenase 120 Total Protein 6.2 Albumin 3.5 3.4 3.5 Globulin 2.8 Albumin/Globulin Ratio 1.2 Triglycerides 117 Cholesterol 142 LDL Cholesterol, Calc 69 HDL Cholesterol 50 Cholesterol/HDL Ratio 2.8 L Beta-Hydroxybutyrate/Acetoacetate 0.0 ABG Interpretation ABG results: 04/14/25 04/14/25 04/14/25 13:05 17:51 22:32 ABG pH 7.36 ABG pCO2 43 ABG pO2 63 L ABG HCO3 25 ABG O2 Saturation 92 ABG Base Excess -1 VBG pH 7.51 7.47 VBG pCO2 33 L 40 VBG pO2 63 H 57 VBG Base Excess 4 H 5 H 04/15/25 07:25 ABG pH ABG pCO2 ABG pO2 ABG HCO3 ABG O2 Saturation ABG Base Excess VBG pH 7.45 VBG pCO2 42 VBG pO2 57 VBG Base Excess 4 H Quality Measures Quality Measures none Assessment & Plan Assessment Current Active Medications: Generic Name Dose Route Start Last Admin Trade Name Freq PRN Reason Stop Dose Admin Acetaminophen 650 mg 04/14/25 08:11 Acetaminophen 325 Mg Tablet PO 05/14/25 08:10 Q6H PRN PAIN SCALE 1-3 (mild Acetaminophen 650 mg 04/14/25 08:11 Acetaminophen 325 Mg Tablet PO 05/14/25 08:10 Q6H PRN Fever >100.4 Hydrocodone Bitart/Acetaminophen 1 tab 04/14/25 08:11 Hydrocodone/Apap 10/325 Tab PO 04/19/25 08:10 Q4HR PRN PAIN SCALE 7-10 (Severe Albuterol/Ipratropium 3 ml 04/14/25 17:29 Albuterol/Ipratropium (Duoneb) Rt Dara 3 Ml Nebu INH 05/14/25 17:28 Q2HR PRN SHORTNESS OF BREATH OR WHEEZE Atorvastatin Calcium 10 mg 04/14/25 21:00 Atorvastatin Calcium 10 Mg Tablet PO 05/14/25 20:59 HS KELLY Cyclobenzaprine HCl 10 mg 04/14/25 21:00 Cyclobenzaprine 5 Mg Tablet PO 05/14/25 20:59 HS KELLY Dextrose 25 ml 04/15/25 10:32 Dextrose 50%-Water Inj 50 Ml Syringe IV 05/15/25 10:31 Q15MIN PRN BG 50-70 responsive npo pt Dextrose 50 ml 04/15/25 10:32 Dextrose 50%-Water Inj 50 Ml Syringe IV 05/15/25 10:31 Q15MIN PRN BG <50 OR BG <70 & pt unresponsive Glucagon 1 mg 04/15/25 10:32 Glucagon Inj 1 Mg Vial IM Q15MIN PRN BG <70, and no IV access Heparin Sodium (Porcine) 5,000 unit 04/14/25 21:00 04/15/25 05:57 Heparin Sod Inj 5000 Unit/Ml Vial SC 04/28/25 20:59 5,000 unit Q8HR KELLY Administration Hydroxyzine HCl 50 mg 04/14/25 21:00 Hydroxyzine Hcl 25 Mg Tablet PO 05/14/25 20:59 HS KELLY Potassium Phosphate 15 mmol in 250 mls @ 62.5 mls/hr 04/15/25 10:39 Pot Phos 15 Mmol In Ns 250 Ml IV 04/15/25 14:38 X1 ONE Magnesium Sulfate 4 gm in 50 mls @ 12.5 mls/hr 04/15/25 12:13 Magnesium Sulfate Ivpb IV 04/15/25 16:12 X1 ONE Insulin Glargine 22 unit 04/15/25 10:45 04/15/25 10:48 Insulin Glargine (Lantus) 5 Unit/0.05 Ml (Per 5 Units) SC 05/15/25 10:44 22 unit QDAY KELLY Administration Insulin Human Lispro 0 unit 04/15/25 11:30 04/15/25 11:31 Insulin Lispro (Admelog) 1 Unit/0.01 Ml Unit SC 05/15/25 11:29 Not Given ACHS [facility] Protocol Ondansetron HCl 4 mg 04/14/25 08:11 04/14/25 08:24 Ondansetron Inj 2 Mg/Ml Inj 2 Ml IVP 05/14/25 08:10 4 mg Q6H PRN Administration NAUSEA OR VOMITING Protocol Pantoprazole Sodium 40 mg 04/16/25 09:00 Pantoprazole 40 Mg Tablet PO 05/16/25 08:59 QDAY KELLY Sertraline HCl 100 mg 04/14/25 09:00 04/14/25 10:26 Sertraline Hcl 25 Mg Tablet PO 05/14/25 08:59 Not Given DAILY [facility] Plan Summary: Ms. Pineda is a 59-year-old female with past medical history of abdominal hernia with multiple adhesions in abdomen, [id number] type 2 diabetes mellitus, fibromyalgia, asthma, hypertension, hyperlipidemia, osteoarthritis and anemia who presented to [facility] emergency department on 04/14/2025 with a chief complaint of generalized abdominal pain. Patient on admission found to have SBO, was started on small bowel series, had elevated blood glucose levels hospitalist team checked CMP showed high anion gap and downtrending bicarb, patient admitted to ICU for close monitoring and DKA protocol. Neurological Alert and oriented x 3 #Dizziness, resolved Cardiology #1+ lower extremity edema Differential diagnosis: Heart failure, lymphedema, venous insufficiency Diagnostic workup: -Patient has 1+ lower extremity edema bilaterally nonpitting -Patient did not develop any hypoxia despite aggressive fluid resuscitation. -Likely has venous insufficiency Treatment: -Pending echocardiogram -Monitor for now #Hypertension Differential diagnosis: Primary hypertension, abdominal pain Diagnostic workup: -Patient has documented history of high blood pressure likely primary hypertension reports taking hydrochlorothiazide and Lasix -Per med reconciliation patient is not taking any antihypertensives -Abdominal pain has improved, blood pressure readings within normal limits Treatment: -Pain management -As needed medications of blood pressure significantly elevated Follow-up: - Monitor blood pressure #Hyperlipidemia, by history Diagnostic workup: - Patient is on lovastatin Treatment: - Started on atorvastatin 10 at bedtime -Lipid panel shows triglycerides 117, cholesterol 142, LDL 69, HDL 50 Follow-up: - Follow-up outpatient Pulmonary #Asthma by history Diagnostic workup: - Documented history of asthma, denies using any inhalers at home otherwise Treatment: -DuoNebs as needed -Currently stable on room air - Does not use any inhalers at home Gastrointestinal #Small bowel obstruction, resolved #Nausea and vomiting, resolved Diagnostic workup: -Abdomen distended on physical exam, reports history of nausea and vomiting -CT abdomen pelvis showing hernia defects, small bowel obstruction patent related to adhesions, -Small bowel series ordered and ED show contrast and dilated jejunal loops follow-up abdominal x-ray at 12 shows incomplete SBO -NG tube placed in ED, received low intermittent suctioning followed by Gastrografin series -History of multiple surgeries, has extensive adhesions per CT scan -Patient reports taking Ozempic for diabetes management, Ozempic is notorious for lowering gut motility -Abdominal x-ray from this morning shows SBO has resolved, patient had 1 bowel movement Treatment: -Started on diet, low residue, 6 small meals -IV Tylenol for pain management -Zofran as needed for nausea Follow-up: - Continue to monitor for any symptoms overnight #Transaminitis Differential diagnosis: DKA, dehydration, statin use, MERRITT Diagnostic workup: -Mild AST elevation 36, no history of any liver disease, synthetic liver function preserved Treatment: - Follow CMP Renal/Genitourinary #High anion gap, resolved #Downtrending bicarb, resolved #Hypophosphatemia #Hypomagnesemia -Correct and replace electrolytes as needed Endocrine #[id number]-[id number] diabetes mellitus, A1c 10.2 #Mild diabetic ketoacidosis, resolved #Elevated beta hydroxybutyrate, resolved Differential diagnosis: Diabetic ketoacidosis, euglycemic DKA, starvation ketoacidosis Diagnostic workup: -Blood glucose significantly elevated noted to be in the higher 300s -Patient on Jardiance for diabetes management -Patient has progressive downtrending bicarb, elevated beta hydroxybutyrate at 4.2 -pH on VBG 7.36, almost acidotic, anion gap 18, urine glucose 4+ -04/15: Gap closed twice, transition to subcutaneous, started on carb consistent low tolerating Treatment: -Carb consistent low diet -Insulin glargine 22 units daily -Step 2 insulin sliding scale -Diabetic education -Referral to registered dietitian - Hypoglycemia protocol. Hematology #Leukocytosis, resolved Likely reactive #Iron deficiency anemia #Microcytic anemia - Patient on oral iron at home, iron panel shows significantly depleted stores of iron - Consider IV iron Infectious Disease #Asymptomatic bacteriuria - No symptoms of urinary incontinence or discomfort -Urine positive for rare bacteria, yeast present -Follow-up blood cultures Musculoskeletal #Fibromyalgia, by history #Osteoarthritis, by history -Resume home dose sertraline- DVT prophylaxis: Heparin every 8 hours GI prophylaxis: IV Protonix Diet: Carb consistent low Lines: Peripheral IV Code status: Full code Case discussed with Attending Dr. Deluna. Tra Adrian MD Internal Medicine Resident PGY2 Disclaimer: This note was dictated by speech recognition. Minor errors in seat coverer may be present due to voice recognition software. Attending Provider Attestation/Addendum pt seen and examined with resident team, agree with above. in brief this is a 59yo F admitted to the ICU with DKA and started on an insulin gtt. OVernight she did well and her AG has closed. She is transitioned to subq insulin. She also has a SBO with NGT in place to LIS. This AM she is AAOx4 , obese, NAD, LCTAB, HRRR, abd pain with palpation, pulses palp, no clubbing, no mottling, no focal neuro deficits. Today she appears improved and stable for downgrade. case d/w ICU team labs, imaging, records reviewed ~35min required for eval, exam, review, intervention, discussion and formulation of POC for this pt
[2025-04-15] MEDS: Magnesium Sulfate 4 GM Ivpb 4 GM/50 ML BAG IV (14:39)
--- NOTE | 2025-04-15 14:43 | PC.SS ---
SS update: Patient stable to be downgraded. D/c plan is home.
--- NOTE | 2025-04-15 15:58 | ESPR_ITS ---
Documentation for date of: 04/15/25 Subjective Subjective Interval history: No acute overnight events. He was upgraded to ICU for suspected DKA with elevated anion gap, tachycardia, fatigue, glucosuria and ketonuria. She was started on fluids and INSULIN drip, gap closed x 2. Downgraded to floors. Meantime, small bowel series showed resolution of SBO, having regular bowel movements. Exam Vital Signs Temp Pulse Resp BP Pulse Ox O2 Del Method 98.0 F 92 22 H 123/78 98 Room Air 04/15/25 10:05 04/15/25 12:02 04/15/25 12:02 04/15/25 11:00 04/15/25 12:02 04/15/25 12:02 Narrative Exam General: Alert and oriented x3, No apparent distress. Skin: Intact, Warm, no rashes. HEENT: Normocephalic, Atraumatic. Normal neck range of motion, Supple. Trachea midline. Respiratory: Lungs are clear to auscultation, Breath sounds are equal bilaterally with equal chest expansion. Abdomen: Soft, distended, some guarding noted, diffusely tender to shallow palpation, diminished bowel sounds. Cardiovascular: RRR, normal S1, S2, No murmurs. Distal pulses 2+ Musculoskeletal: No swelling, moving all 4 extremities with FROM Neurologic: Alert, Oriented, No focal deficits. Moving all 4 extremities spontaneously Psych: Thoughts linear and responses appropriate. Objective Labs 04/16/25 05:40 04/16/25 05:40 Labs: Laboratory Results - last 24 hr 04/14/25 04/14/25 04/14/25 17:51 18:35 22:32 WBC RBC Hgb Hct MCV MCH MCHC RDW Std Deviation Plt Count Neut % (Auto) Lymph % (Auto) [place] % (Auto) Eos % (Auto) Baso % (Auto) Neut # (Auto) Lymph # (Auto) [place] # (Auto) Eos # (Auto) Baso # (Auto) Immature Gran # (Auto) Absolute Nucleated RBC Immature Gran % Nucleated RBC % VBG pH 7.51 7.47 VBG pCO2 33 L 40 VBG pO2 63 H 57 VBG O2 Sat (Percy) 94 L 93 L VBG Base Excess 4 H 5 H Sodium 147 H 149 H Potassium 3.9 4.0 Chloride 110 H 110 H Carbon Dioxide 28.1 28.5 Anion Gap 9 11 BUN 10 10 Creatinine 0.6 0.6 Estim Creat Clear Calc 94.1 94.1 eGFR > 60 > 60 BUN/Creatinine Ratio 17 17 Glucose 172 H D [address] Glu mg/dL Hemoglobin A1c Calculated Osmolality 295 298 H Lactic Acid 1.3 0.9 Calcium 8.5 8.9 Corrected Calcium 8.7 9.1 Phosphorus 1.9 L 2.1 L Magnesium 1.5 L 2.7 H Iron TIBC Iron Saturation Unsat Iron Binding Ferritin Total Bilirubin AST ALT Alkaline Phosphatase Lactate Dehydrogenase Total Protein Albumin 3.8 D 3.7 Globulin Albumin/Globulin Ratio Triglycerides Cholesterol LDL Cholesterol, Calc HDL Cholesterol Cholesterol/HDL Ratio Beta-Hydroxybutyrate/Acetoacetate 04/15/25 04/15/25 04/15/25 02:16 07:25 10:44 WBC 8.2 RBC 4.52 Hgb 10.3 L D Hct 33.3 L MCV 74 L MCH 22.8 L MCHC 30.9 L RDW Std Deviation 47.9 H Plt Count 199 D Neut % (Auto) 64 Lymph % (Auto) 29 [place] % (Auto) 5 Eos % (Auto) 1 Baso % (Auto) 0 Neut # (Auto) 5.2 Lymph # (Auto) 2.3 [place] # (Auto) 0.4 Eos # (Auto) 0.1 Baso # (Auto) 0.0 Immature Gran # (Auto) 0.05 H Absolute Nucleated RBC 0.00 Immature Gran % 1 H Nucleated RBC % 0 VBG pH 7.45 VBG pCO2 42 VBG pO2 57 VBG O2 Sat (Percy) 93 L VBG Base Excess 4 H Sodium 149 H 146 H 145 Potassium 4.1 4.0 4.4 Chloride 111 H 111 H 108 H Carbon Dioxide 27.9 26.5 29.2 Anion Gap 10 9 8 BUN 8 L 6 L 5 L Creatinine 0.6 0.5 L 0.5 L Estim Creat Clear Calc 94.1 114.8 114.8 eGFR > 60 > 60 > 60 BUN/Creatinine Ratio 13 12 10 L Glucose 135 H 142 [address] Glu mg/dL 246 H Hemoglobin A1c 10.2 H Calculated Osmolality 296 H 290 286 Lactic Acid 1.2 Calcium 8.2 L 8.1 L 8.3 Corrected Calcium 8.6 8.6 8.7 Phosphorus 1.9 L 1.5 L 2.1 L Magnesium 1.9 1.7 1.5 L Iron 13 L TIBC 289 Iron Saturation 4 L Unsat Iron Binding 276 Ferritin 9 Total Bilirubin 0.3 AST 25 ALT 26 Alkaline Phosphatase 89 D Lactate Dehydrogenase 120 Total Protein 6.2 Albumin 3.5 3.4 3.5 Globulin 2.8 Albumin/Globulin Ratio 1.2 Triglycerides 117 Cholesterol 142 LDL Cholesterol, Calc 69 HDL Cholesterol 50 Cholesterol/HDL Ratio 2.8 L Beta-Hydroxybutyrate/Acetoacetate 0.0 ABG Interpretation ABG results: 04/14/25 04/14/25 04/14/25 13:05 17:51 22:32 ABG pH 7.36 ABG pCO2 43 ABG pO2 63 L ABG HCO3 25 ABG O2 Saturation 92 ABG Base Excess -1 VBG pH 7.51 7.47 VBG pCO2 33 L 40 VBG pO2 63 H 57 VBG Base Excess 4 H 5 H 04/15/25 07:25 ABG pH ABG pCO2 ABG pO2 ABG HCO3 ABG O2 Saturation ABG Base Excess VBG pH 7.45 VBG pCO2 42 VBG pO2 57 VBG Base Excess 4 H Quality Measures Quality Measures none Assessment & Plan Assessment Current Active Medications: Generic Name Dose Route Start Last Admin Trade Name Freq PRN Reason Stop Dose Admin Acetaminophen 650 mg 04/14/25 08:11 Acetaminophen 325 Mg Tablet PO 05/14/25 08:10 Q6H PRN PAIN SCALE 1-3 (mild Acetaminophen 650 mg 04/14/25 08:11 Acetaminophen 325 Mg Tablet PO 05/14/25 08:10 Q6H PRN Fever >100.4 Hydrocodone Bitart/Acetaminophen 1 tab 04/14/25 08:11 Hydrocodone/Apap 10/325 Tab PO 04/19/25 08:10 Q4HR PRN PAIN SCALE 7-10 (Severe Albuterol/Ipratropium 3 ml 04/14/25 17:29 Albuterol/Ipratropium (Duoneb) Rt Dara 3 Ml Nebu INH 05/14/25 17:28 Q2HR PRN SHORTNESS OF BREATH OR WHEEZE Atorvastatin Calcium 10 mg 04/14/25 21:00 Atorvastatin Calcium 10 Mg Tablet PO 05/14/25 20:59 HS KELLY Cyclobenzaprine HCl 10 mg 04/14/25 21:00 Cyclobenzaprine 5 Mg Tablet PO 05/14/25 20:59 HS KELLY Dextrose 25 ml 04/15/25 10:32 Dextrose 50%-Water Inj 50 Ml Syringe IV 05/15/25 10:31 Q15MIN PRN BG 50-70 responsive npo pt Dextrose 50 ml 04/15/25 10:32 Dextrose 50%-Water Inj 50 Ml Syringe IV 05/15/25 10:31 Q15MIN PRN BG <50 OR BG <70 & pt unresponsive Glucagon 1 mg 04/15/25 10:32 Glucagon Inj 1 Mg Vial IM Q15MIN PRN BG <70, and no IV access Heparin Sodium (Porcine) 5,000 unit 04/14/25 21:00 04/15/25 14:41 Heparin Sod Inj 5000 Unit/Ml Vial SC 04/28/25 20:59 5,000 unit Q8HR KELLY Administration Hydroxyzine HCl 50 mg 04/14/25 21:00 Hydroxyzine Hcl 25 Mg Tablet PO 05/14/25 20:59 HS [facility] Magnesium Sulfate 4 gm in 50 mls @ 12.5 mls/hr 04/15/25 12:56 04/15/25 14:39 Magnesium Sulfate Ivpb IV 04/15/25 16:12 12.5 mls/hr X1 ONE Administration Insulin Glargine 22 unit 04/15/25 10:45 04/15/25 10:48 Insulin Glargine (Lantus) 5 Unit/0.05 Ml (Per 5 Units) SC 05/15/25 10:44 22 unit QDAY KELLY Administration Insulin Human Lispro 0 unit 04/15/25 11:30 04/15/25 11:31 Insulin Lispro (Admelog) 1 Unit/0.01 Ml Unit SC 05/15/25 11:29 Not Given ACHS [facility] Protocol Ondansetron HCl 4 mg 04/14/25 08:11 04/14/25 08:24 Ondansetron Inj 2 Mg/Ml Inj 2 Ml IVP 05/14/25 08:10 4 mg Q6H PRN Administration NAUSEA OR VOMITING Protocol Pantoprazole Sodium 40 mg 04/16/25 09:00 Pantoprazole 40 Mg Tablet PO 05/16/25 08:59 QDAY KELLY Sertraline HCl 100 mg 04/14/25 09:00 04/14/25 10:26 Sertraline Hcl 25 Mg Tablet PO 05/14/25 08:59 Not Given DAILY KELLY Plan In summary, Annmarie Pineda is a 67-year-old female with PMH of T2DM, arthritis, fibromyalgia, asthma, who presented to the ED with worsening abdominal pain of 24H length. Patient was hyperglycemic and there was concern over symptoms associated with DKA. Appreciate recommendations from bar catcher and GI teams. SBO (resolved) Diffuse severe abdominal pain, N/V on presentation. Guarding, abdominal tenderness, diminished bowel sounds on PE. CTAP: Supraumbilical hernia defect containing transverse colon + right ventral hernia defect containing small bowel + dilated small bowel loops. Small bowel series showed resolution of SBO. Having regular bowel movements. ? Discontinued NG tube ? Encourage oral intake and fluids ? Daily MIRALAX ? Pain control, ANTIEMETICS ? Recommended discontinuing OZEMPIC on discharge High anion gap Type 2 diabetes mellitus, INSULIN na?ve On presentation, anion gap 14, then 18 on repeat. GLUCOSE in 300s. UA showed 4+ GLUCOSE and 3+ ketonuria. ABG was borderline acidotic at pH 7.36. There was concern for DKA given above-mentioned findings and presentation with nausea and fatigue, as well as tachycardia in 130s. ICU team accepted admission for DKA protocol. Anion gap was closed x 2. She was downgraded to floors. A1c 8.5, on home OZEMPIC, JANUVIA and JARDIANCE Patient on Ozempic Jardiance Januvia at home HgA1c 8.5 one-year ago ? INSULIN GLARGINE 22 units q. day ? INSULIN sliding scale ? Accu-Cheks Bilateral lower extremity edema Possibly due to fluids, no history of heart failure, no recent echo on file. BNP less than 20. ? Pending echocardiogram Depression ? Continue home SERTRALINE 100 mg p.o. daily Asthma ? DuoNebs as needed Arthritis Fibromyalgia Holding home meds in settings of fatigue and nausea. ? Resume home CYCLOBENZAPRINE 10 mg HS when appropriate ? Resume home HYDROXYZINE 50 mg when appropriate Electrolyte abnormalities ? Replete as needed Health maintenance Diet: CHO consistent GI prophylaxis: PROTONIX DVT prophylaxis: HEPARIN subcu Antibiotics: Not indicated CODE STATUS: Full code Disposition: Admitted for SBO and elevated anion gap Case was discussed with attending physician. Gilmar Avila DO PGY II This document was transcribed using voice recognition technology. Minor inaccuracies may be present. Attending Provider Attestation/Addendum I have examined the patient, reviewed labs and imaging findings, discussed the case with the resident(s), and reviewed entered orders. I agree with the plan of care as outlined in this note. Dr. Alan MD
--- NOTE | 2025-04-15 17:15 | PC.NURSE ---
PATIENT ALERT AND ORIENTED X3, DENIES ANY COMPLAINS, DAUGHTER AT BEDSIDE.
--- NOTE | 2025-04-15 18:09 | ESPR_ITS ---
Documentation for date of: 04/15/25 Subjective Subjective Interval history: Patient evaluated Small bowel follow-through is negative for small bowel obstruction the contrast is in the colon as of the KUB this morning significant drop in hemoglobin hematocrit 13.2 and 40.1 this 10.3 and 33.3 patient was not dehydrated Exam Vital Signs Temp Pulse Resp BP Pulse Ox O2 Del Method 98.0 F 97 27 H 123/78 94 L Room Air 04/15/25 10:05 04/15/25 16:45 04/15/25 16:45 04/15/25 11:00 04/15/25 16:45 04/15/25 12:02 Objective Labs 04/15/25 07:25 04/15/25 10:44 Labs: Laboratory Results - last 24 hr 04/14/25 04/14/25 04/15/25 18:35 22:32 02:16 WBC RBC Hgb Hct MCV MCH MCHC RDW Std Deviation Plt Count Neut % (Auto) Lymph % (Auto) [place] % (Auto) Eos % (Auto) Baso % (Auto) Neut # (Auto) Lymph # (Auto) [place] # (Auto) Eos # (Auto) Baso # (Auto) Immature Gran # (Auto) Absolute Nucleated RBC Immature Gran % Nucleated RBC % VBG pH 7.47 VBG pCO2 40 VBG pO2 57 VBG O2 Sat (Percy) 93 L VBG Base Excess 5 H Sodium 147 H 149 H 149 H Potassium 3.9 4.0 4.1 Chloride 110 H 110 H 111 H Carbon Dioxide 28.1 28.5 27.9 Anion Gap 9 11 10 BUN 10 10 8 L Creatinine 0.6 0.6 0.6 Estim Creat Clear Calc 94.1 94.1 94.1 eGFR > 60 > 60 > 60 BUN/Creatinine Ratio 17 17 13 Glucose 172 H D 160 H [address] Glu mg/dL Hemoglobin A1c Calculated Osmolality 295 298 H 296 H Lactic Acid 0.9 Calcium 8.5 8.9 8.2 L Corrected Calcium 8.7 9.1 8.6 Phosphorus 1.9 L 2.1 L 1.9 L Magnesium 1.5 L 2.7 H 1.9 Iron TIBC Iron Saturation Unsat Iron Binding Ferritin Total Bilirubin AST ALT Alkaline Phosphatase Lactate Dehydrogenase Total Protein Albumin 3.8 D 3.7 3.5 Globulin Albumin/Globulin Ratio Triglycerides Cholesterol LDL Cholesterol, Calc HDL Cholesterol Cholesterol/HDL Ratio Beta-Hydroxybutyrate/Acetoacetate 04/15/25 04/15/25 07:25 10:44 WBC 8.2 RBC 4.52 Hgb 10.3 L D Hct 33.3 L MCV 74 L MCH 22.8 L MCHC 30.9 L RDW Std Deviation 47.9 H Plt Count 199 D Neut % (Auto) 64 Lymph % (Auto) 29 [place] % (Auto) 5 Eos % (Auto) 1 Baso % (Auto) 0 Neut # (Auto) 5.2 Lymph # (Auto) 2.3 [place] # (Auto) 0.4 Eos # (Auto) 0.1 Baso # (Auto) 0.0 Immature Gran # (Auto) 0.05 H Absolute Nucleated RBC 0.00 Immature Gran % 1 H Nucleated RBC % 0 VBG pH 7.45 VBG pCO2 42 VBG pO2 57 VBG O2 Sat (Percy) 93 L VBG Base Excess 4 H Sodium 146 H 145 Potassium 4.0 4.4 Chloride 111 H 108 H Carbon Dioxide 26.5 29.2 Anion Gap 9 8 BUN 6 L 5 L Creatinine 0.5 L 0.5 L Estim Creat Clear Calc 114.8 114.8 eGFR > 60 > 60 BUN/Creatinine Ratio 12 10 L Glucose 142 H [address] Glu mg/dL 246 H Hemoglobin A1c 10.2 H Calculated Osmolality 290 286 Lactic Acid 1.2 Calcium 8.1 L 8.3 Corrected Calcium 8.6 8.7 Phosphorus 1.5 L 2.1 L Magnesium 1.7 1.5 L Iron 13 L TIBC 289 Iron Saturation 4 L Unsat Iron Binding 276 Ferritin 9 Total Bilirubin 0.3 AST 25 ALT 26 Alkaline Phosphatase 89 D Lactate Dehydrogenase 120 Total Protein 6.2 Albumin 3.4 3.5 Globulin 2.8 Albumin/Globulin Ratio 1.2 Triglycerides 117 Cholesterol 142 LDL Cholesterol, Calc 69 HDL Cholesterol 50 Cholesterol/HDL Ratio 2.8 L Beta-Hydroxybutyrate/Acetoacetate 0.0 Impressions Impression: Small bowel obstruction resolved Ventral hernia Continue to monitor Clear liquid diet GoLytely prep Schedule colonoscopy after GoLytely prep ABG Interpretation ABG results: 04/14/25 04/14/25 04/14/25 13:05 17:51 22:32 ABG pH 7.36 ABG pCO2 43 ABG pO2 63 L ABG HCO3 25 ABG O2 Saturation 92 ABG Base Excess -1 VBG pH 7.51 7.47 VBG pCO2 33 L 40 VBG pO2 63 H 57 VBG Base Excess 4 H 5 H 04/15/25 07:25 ABG pH ABG pCO2 ABG pO2 ABG HCO3 ABG O2 Saturation ABG Base Excess VBG pH 7.45 VBG pCO2 42 VBG pO2 57 VBG Base Excess 4 H Assessment & Plan Time Spent With Patient Time: Total time spent is greater than 50% in coordination of care (as documented) at patient's floor/unit and/or counseling patient:
[2025-04-15] MEDS: ACETAMINOPHEN 325 MG TABLET 650 MG PO (20:37)
[2025-04-15] MEDS: ATORVASTATIN CALCIUM 10 MG TABLET PO (20:37)
[2025-04-15] MEDS: INSULIN LISPRO (AdmeLOG) 1 UNIT/0.01 ML UNIT SC (20:38)
[2025-04-15] MEDS: NA SU/NAHCO3/KC/PEG (Golytely) 4,000 ML BTL 4000 ML PO (22:15)
[2025-04-16] VITALS (18 sets, daily range): BP systolic 100–154; BP diastolic 61–93; PULSE 90–105; RESP 14–20; TEMP 36.2–36.5; O2SAT 94–100; BMI 54.0
[2025-04-16] MEDS: HEPARIN SOD INJ 5000 UNIT/ML VIAL SC ×3 (05:18→21:36)
[2025-04-16 06:32] LABS: Basophils # (Auto) 0.0 Thou/mm3 (0.0-0.2); Basophils % (Auto) 0 % (0-2.5); Eosinophils # (Auto) 0.1 Thou/mm3 (0.0-0.5); Eosinophils % (Auto) 2 % (0-10); Hematocrit 37.2 % (36.0-46.0); Hemoglobin 11.4 g/dL (12.0-16.0); Immature Granulocytes Auto 0.05 Thou/mm3 (0.00-0.00); Lymphocytes # (Auto) 2.8 Thou/mm3 (1.0-4.8); Lymphocytes % (Auto) 32 % (10-50); Mean Corpuscular HGB Conc 30.6 g/dl (31.0-37.0); Mean Corpuscular Hemoglobin 23.0 pg (25.0-35.0); Mean Corpuscular Volume 75 fL (80-100); Monocytes # (Auto) 0.4 Thou/mm3 (0.0-0.8); Monocytes % (Auto) 5 % (0-12); Neutrophils # (Auto) 5.4 Thou/mm3 (1.8-7.7); Neutrophils % (Auto) 61 % (37-80); Nucleated Red Blood Cell # 0.00 Thou/mm3 (0.00-0.00); Nucleated Red Blood Cell % 0 /100 WBC (0); Platelet Count 217 Thou/mm3 (140-440); RDW Standard Deviation 48.4 fL (36.4-46.3); Red Blood Count 4.95 Miln/mm3 (4.00-5.20); White Blood Count 8.8 Thou/mm3 (3.6-11.0)
[2025-04-16 07:04] LABS: Alanine Aminotransferase 26 U/L (10-49); Albumin, Serum 4.0 gm/dL (3.4-4.8); Albumin/Globulin Ratio 1.2 (1.2-2.2); Alkaline Phosphatase 106 U/L (46-116); Anion Gap 9 (7-16); Aspartate Amino Transferase 27 U/L (0-34); BUN/Creatinine Ratio 17 Ratio (12-20); Bilirubin,Total 0.4 mg/dL (0.3-1.2); Blood Urea Nitrogen 10 mg/dL (9-23); Calcium 8.8 mg/dL (8.3-10.6); Calcium (Corrected) 8.8 mg/dL (8.5-10.1); Carbon Dioxide 27.1 mMol/L (20.0-31.0); Chloride 104 mMol/L (98-107); Creatinine (Component) 0.6 mg/dL (0.6-1.3); Estimated Creatinine Clearance 95.7 mL/min (>60); Globulin 3.3 gm/dL (2.3-3.5); Glucose 148 mg/dL (74-106); Magnesium 2.2 mg/dL (1.6-2.6); Osmolality,Calculated 281 (275-295); Phosphorous 3.2 mg/dL (2.4-5.1); Potassium 4.1 mMol/L (3.4-5.1); Sodium 140 mMol/L (136-145); Total Protein 7.3 gm/dL (5.7-8.2); eGFR > 60 See Note
[2025-04-16] MEDS: INSULIN GLARGINE (Lantus) 5 UNIT/0.05 ML (PER 5 UNITS) 22 UNIT SC (09:53)
[2025-04-16] MEDS: PANTOPRAZOLE 40 MG TABLET PO (09:53)
[2025-04-16] MEDS: SERTRALINE HCL 25 MG TABLET 100 MG PO (09:53)
[2025-04-16] MEDS: POLYETHYLENE GLYCOL 17 GM PACKET PO (09:54)
--- NOTE | 2025-04-16 13:43 | ESPR_ITS ---
Documentation for date of: 04/16/25 Subjective Subjective Interval history: No acute overnight events. Pt is having regular bowel movements many times yesterday after drinking the bowel prep. Threw up gello that she had eaten upon drinking the bowel prep initially. BM are clear per patient and nurse. Abdominal pain has resolved. She also states that she feels dizzy/lightheaded when she stands up after being seated or lying, and has to wait for short before regaining her balance. Pt had been upgraded to ICU for suspected DKA with elevated anion gap, tachycardia, fatigue, glucosuria and ketonuria. She was started on fluids and INSULIN drip, gap closed x 2. Downgraded to floors. Exam Vital Signs Temp Pulse Resp BP Pulse Ox O2 Del Method 97.5 F 100 18 122/76 97 Room Air 04/16/25 12:00 04/16/25 12:00 04/16/25 12:00 04/16/25 12:00 04/16/25 12:00 04/16/25 12:00 Narrative Exam General: Alert and oriented x3, No apparent distress. Skin: Intact, Warm, no rashes. HEENT: Normocephalic, Atraumatic. Normal neck range of motion, Supple. Trachea midline. Respiratory: Lungs are clear to auscultation, Breath sounds are equal bilaterally with equal chest expansion. Abdomen: Soft, non-distended, normotensive bowel sounds x4. Percussion tympanic. No tenderness to shallow or deep palpatation. Cardiovascular: RRR, normal S1, S2, No murmurs. Distal pulses 2+ Musculoskeletal: No swelling, moving all 4 extremities with FROM Neurologic: Alert, Oriented, No focal deficits. Moving all 4 extremities spontaneously Psych: Thoughts linear and responses appropriate. Objective Labs 04/17/25 05:25 04/17/25 05:25 Labs: Laboratory Results - last 24 hr 04/16/25 05:40 WBC 8.8 RBC 4.95 Hgb 11.4 L Hct 37.2 MCV 75 L MCH 23.0 L MCHC 30.6 L RDW Std Deviation 48.4 H Plt Count 217 Neut % (Auto) 61 Lymph % (Auto) 32 [place] % (Auto) 5 Eos % (Auto) 2 Baso % (Auto) 0 Neut # (Auto) 5.4 Lymph # (Auto) 2.8 [place] # (Auto) 0.4 Eos # (Auto) 0.1 Baso # (Auto) 0.0 Immature Gran # (Auto) 0.05 H Absolute Nucleated RBC 0.00 Immature Gran % 1 H Nucleated RBC % 0 Sodium 140 Potassium 4.1 Chloride 104 Carbon Dioxide 27.1 Anion Gap 9 BUN 10 Creatinine 0.6 Estim Creat Clear Calc 95.7 eGFR > 60 BUN/Creatinine Ratio 17 Glucose 148 H Calculated Osmolality 281 Calcium 8.8 Corrected Calcium 8.8 Phosphorus 3.2 Magnesium 2.2 Total Bilirubin 0.4 AST 27 ALT 26 Alkaline Phosphatase 106 Total Protein 7.3 Albumin 4.0 D Globulin 3.3 Albumin/Globulin Ratio 1.2 ABG Interpretation ABG results: 04/14/25 04/14/25 04/14/25 13:05 17:51 22:32 ABG pH 7.36 ABG pCO2 43 ABG pO2 63 L ABG HCO3 25 ABG O2 Saturation 92 ABG Base Excess -1 VBG pH 7.51 7.47 VBG pCO2 33 L 40 VBG pO2 63 H 57 VBG Base Excess 4 H 5 H 04/15/25 07:25 ABG pH ABG pCO2 ABG pO2 ABG HCO3 ABG O2 Saturation ABG Base Excess VBG pH 7.45 VBG pCO2 42 VBG pO2 57 VBG Base Excess 4 H Quality Measures Quality Measures none Assessment & Plan Assessment Current Active Medications: Generic Name Dose Route Start Last Admin Trade Name Freq PRN Reason Stop Dose Admin Acetaminophen 650 mg 04/14/25 08:11 04/15/25 20:37 Acetaminophen 325 Mg Tablet PO 05/14/25 08:10 650 mg Q6H PRN Administration PAIN SCALE 1-3 (mild Acetaminophen 650 mg 04/14/25 08:11 Acetaminophen 325 Mg Tablet PO 05/14/25 08:10 Q6H PRN Fever >100.4 Hydrocodone Bitart/Acetaminophen 1 tab 04/14/25 08:11 Hydrocodone/Apap 10/325 Tab PO 04/19/25 08:10 Q4HR PRN PAIN SCALE 7-10 (Severe Albuterol/Ipratropium 3 ml 04/14/25 17:29 Albuterol/Ipratropium (Duoneb) Rt Dara 3 Ml Nebu INH 05/14/25 17:28 Q2HR PRN SHORTNESS OF BREATH OR WHEEZE Atorvastatin Calcium 10 mg 04/14/25 21:00 07/11/25 20:37 Atorvastatin Calcium 10 Mg Tablet PO 05/14/25 20:59 10 mg HS KELLY Administration Cyclobenzaprine HCl 10 mg 04/14/25 21:00 Cyclobenzaprine 5 Mg Tablet PO 05/14/25 20:59 HS KELLY Dextrose 25 ml 04/15/25 10:32 Dextrose 50%-Water Inj 50 Ml Syringe IV 05/15/25 10:31 Q15MIN PRN BG 50-70 responsive npo pt Dextrose 50 ml 04/15/25 10:32 Dextrose 50%-Water Inj 50 Ml Syringe IV 05/15/25 10:31 Q15MIN PRN BG <50 OR BG <70 & pt unresponsive Glucagon 1 mg 04/15/25 10:32 Glucagon Inj 1 Mg Vial IM Q15MIN PRN BG <70, and no IV access Heparin Sodium (Porcine) 5,000 unit 04/14/25 21:00 04/16/25 05:18 Heparin Sod Inj 5000 Unit/Ml Vial SC 04/28/25 20:59 5,000 unit Q8HR KELLY Administration Hydroxyzine HCl 50 mg 04/14/25 21:00 Hydroxyzine Hcl 25 Mg Tablet PO 05/14/25 20:59 HS KELLY Insulin Glargine 22 unit 04/15/25 10:45 04/16/25 09:53 Insulin Glargine (Lantus) 5 Unit/0.05 Ml (Per 5 Units) SC 05/15/25 10:44 22 unit QDAY KELLY Administration Insulin Human Lispro 0 unit 04/15/25 11:30 04/16/25 13:01 Insulin Lispro (Admelog) 1 Unit/0.01 Ml Unit SC 05/15/25 11:29 Not Given ACHS [facility] Protocol Ondansetron HCl 4 mg 04/14/25 08:11 04/14/25 08:24 Ondansetron Inj 2 Mg/Ml Inj 2 Ml IVP 05/14/25 08:10 4 mg Q6H PRN Administration NAUSEA OR VOMITING Protocol Pantoprazole Sodium 40 mg 04/16/25 09:00 04/16/25 09:53 Pantoprazole 40 Mg Tablet PO 05/16/25 08:59 40 mg QDAY KELLY Administration Polyethylene Glycol 17 gm 04/15/25 19:00 04/16/25 09:54 Polyethylene Glycol 17 Gm Packet PO 05/15/25 18:59 17 gm QDAY KELLY Administration Sertraline HCl 100 mg 04/14/25 09:00 04/16/25 09:53 Sertraline Hcl 25 Mg Tablet PO 05/14/25 08:59 100 mg DAILY KELLY Administration Plan In summary, Annmarie Pineda is a 67-year-old female with PMH of T2DM, arthritis, fibromyalgia, asthma, who presented to the ED with worsening abdominal pain of 24H length. Patient was hyperglycemic and there was concern over symptoms associated with DKA. Appreciate recommendations from colorer hides and skins and GI teams. SBO (resolved) Diffuse severe abdominal pain, N/V on presentation. Guarding, abdominal tenderness, diminished bowel sounds on PE. CTAP: Supraumbilical hernia defect containing transverse colon + right ventral hernia defect containing small bowel + dilated small bowel loops. Small bowel series showed resolution of SBO. Having regular bowel movements. ? Discontinued NG tube ? Encourage oral intake and fluids ? Daily MIRALAX ? Pain control, ANTIEMETICS ? Recommended discontinuing OZEMPIC on discharge Acute-onset anemia DDx GI bleed Hgb dropped from 13.2 on 04/14 to 10.2 on 04/15; today 11.4 GI boarded who recommends colonoscopy Plan: clear liquid diet GoLytely bowel prep colonoscopy by Dr. Mcelroy orthostatic hypotension (needs to rule out) Ddx vertigo dizziness right after standing up ordered orthostatic vitals High anion gap Type 2 diabetes mellitus, INSULIN na?ve On presentation, anion gap 14, then 18 on repeat. GLUCOSE in 300s. UA showed 4+ GLUCOSE and 3+ ketonuria. ABG was borderline acidotic at pH 7.36. There was concern for DKA given above-mentioned findings and presentation with nausea and fatigue, as well as tachycardia in 130s. ICU team accepted admission for DKA protocol. Anion gap was closed x 2. She was downgraded to floors. A1c 8.5, on home OZEMPIC, JANUVIA and JARDIANCE Patient on Ozempic Jardiance Januvia at home HgA1c 10.2 (04/15/2025) ? INSULIN GLARGINE 22 units q. day ? INSULIN sliding scale ? Accu-Cheks Bilateral lower extremity edema Possibly due to fluids, no history of heart failure, no recent echo on file. BNP less than 20. ? Pending echocardiogram Depression ? Continue home SERTRALINE 100 mg p.o. daily Asthma ? DuoNebs as needed Arthritis Fibromyalgia Holding home meds in settings of fatigue and nausea. ? Resume home CYCLOBENZAPRINE 10 mg HS when appropriate ? Resume home HYDROXYZINE 50 mg when appropriate Electrolyte abnormalities ? Replete as needed Health maintenance Diet: CHO consistent GI prophylaxis: PROTONIX DVT prophylaxis: HEPARIN subcu Antibiotics: Not indicated CODE STATUS: Full code Disposition: Admitted for SBO and elevated anion gap Case was discussed with attending physician. Gilmar Avila DO PGY II This document was transcribed using voice recognition technology. Minor inaccuracies may be present. Attending Provider Attestation/Addendum I have examined the patient, reviewed labs and imaging findings, discussed the case with the resident(s), and reviewed entered orders. I agree with the plan of care as outlined in this note, with these additional summaries/recommendations: Patient seen at bedside. No acute overnight events. Patient reports she completed GoLytely and will go for endoscopy later today with gastroenterology. Patient's DKA has resolved. Anion gap closed x 2. She is tolerating diet. She has been transition to insulin glargine 22 units daily and lispro sliding scale. A1c 10.2%. Order diabetic education and refer to dietary. Patient completed small bowel series and was negative for small bowel obstruction. Continue home sertraline. Pain management as needed. Echocardiogram for lower extremity swelling revealed normal ejection fraction and most likely dependent edema which is resolving. Patient updated on the plan and in agreement. All questions answered to satisfaction. Please see residents note for additional details and management. Dr. Alan MD
[2025-04-16] MEDS: ACETAMINOPHEN 325 MG TABLET 650 MG PO (14:09)
--- NOTE | 2025-04-16 15:45 | PC.SS ---
Per rounding, pt is pending a colonoscopy. No d/c date at this time.
--- NOTE | 2025-04-16 17:21 | SUR.PHASEI ---
1721 To PACU awake and alert able to lift head off of pillow following simple commands continue to monitor pt vitals signs and status.
--- NOTE | 2025-04-16 17:53 | SUR.PHASEI ---
1753 Transfer to room 374 in stable condition, awake and alert, no s/s of distress noted, no complaints.
[2025-04-16] MEDS: INSULIN LISPRO (AdmeLOG) 1 UNIT/0.01 ML UNIT SC (20:10)
[2025-04-16] MEDS: ATORVASTATIN CALCIUM 10 MG TABLET PO (20:10)
[2025-04-17] VITALS: BP 128/72; PULSE 85; RESP 17; TEMP 36.2; O2SAT 95
[2025-04-17 04:00] VITALS: BP 111/76; PULSE 87; RESP 18; TEMP 36.1; O2SAT 97
[2025-04-17] MEDS: HEPARIN SOD INJ 5000 UNIT/ML VIAL SC (05:44)
[2025-04-17 06:00] VITALS: BMI 54.0
[2025-04-17 06:15] LABS: Basophils # (Auto) 0.0 Thou/mm3 (0.0-0.2); Basophils % (Auto) 0 % (0-2.5); Eosinophils # (Auto) 0.1 Thou/mm3 (0.0-0.5); Eosinophils % (Auto) 2 % (0-10); Hematocrit 34.5 % (36.0-46.0); Hemoglobin 10.7 g/dL (12.0-16.0); Immature Granulocytes Auto 0.06 Thou/mm3 (0.00-0.00); Lymphocytes # (Auto) 2.3 Thou/mm3 (1.0-4.8); Lymphocytes % (Auto) 33 % (10-50); Mean Corpuscular HGB Conc 31.0 g/dl (31.0-37.0); Mean Corpuscular Hemoglobin 22.6 pg (25.0-35.0); Mean Corpuscular Volume 73 fL (80-100); Monocytes # (Auto) 0.4 Thou/mm3 (0.0-0.8); Monocytes % (Auto) 6 % (0-12); Neutrophils # (Auto) 4.2 Thou/mm3 (1.8-7.7); Neutrophils % (Auto) 59 % (37-80); Nucleated Red Blood Cell # 0.00 Thou/mm3 (0.00-0.00); Nucleated Red Blood Cell % 0 /100 WBC (0); Platelet Count 205 Thou/mm3 (140-440); RDW Standard Deviation 47.1 fL (36.4-46.3); Red Blood Count 4.74 Miln/mm3 (4.00-5.20); White Blood Count 7.1 Thou/mm3 (3.6-11.0)
[2025-04-17 06:41] LABS: Alanine Aminotransferase 23 U/L (10-49); Albumin, Serum 3.6 gm/dL (3.4-4.8); Albumin/Globulin Ratio 1.2 (1.2-2.2); Alkaline Phosphatase 95 U/L (46-116); Anion Gap 10 (7-16); Aspartate Amino Transferase 32 U/L (0-34); BUN/Creatinine Ratio 10 Ratio (12-20); Bilirubin,Total 0.3 mg/dL (0.3-1.2); Blood Urea Nitrogen < 5 mg/dL (9-23); Calcium 8.6 mg/dL (8.3-10.6); Calcium (Corrected) 8.9 mg/dL (8.5-10.1); Carbon Dioxide 26.8 mMol/L (20.0-31.0); Chloride 104 mMol/L (98-107); Creatinine (Component) 0.5 mg/dL (0.6-1.3); Estimated Creatinine Clearance 114.8 mL/min (>60); Globulin 3.0 gm/dL (2.3-3.5); Glucose 87 mg/dL (74-106); Magnesium 1.8 mg/dL (1.6-2.6); Osmolality,Calculated 277 (275-295); Phosphorous 3.4 mg/dL (2.4-5.1); Potassium 3.8 mMol/L (3.4-5.1); Sodium 141 mMol/L (136-145); Total Protein 6.6 gm/dL (5.7-8.2); eGFR > 60 See Note
[2025-04-17 08:13] VITALS: BP 133/89; PULSE 86; RESP 18; TEMP 36.3; O2SAT 97
[2025-04-17] MEDS: PANTOPRAZOLE 40 MG TABLET PO (09:28)
[2025-04-17] MEDS: INSULIN GLARGINE (Lantus) 5 UNIT/0.05 ML (PER 5 UNITS) 22 UNIT SC (09:28)
[2025-04-17] MEDS: SERTRALINE HCL 25 MG TABLET 100 MG PO (09:28)
[2025-04-17 12:00] VITALS: BP 133/88; PULSE 84; RESP 18; TEMP 36.3; O2SAT 97
--- NOTE | 2025-04-17 12:59 | ESDS_ITS ---
Planned Discharge Date 04/17/25 DS: Providers Provider Date of admission: 04/14/25 08:11 Primary care physician: EMMY Dawson Admitting Provider: Iraj Phillips MD Attending Provider on Admission: Iraj Phillips MD Consults: 04/14/25 06:02 Consult to Gastroenterology Stat Comment: GI bleeding/transfusion Consider endoscopy Consulting Provider: Charito Mcelroy 04/14/25 13:10 Referral Registered Dietitian Routine Comment: 04/14/25 13:20 Consult to Caul Puller Stat Comment: Eleavted AG, concern for DKA Consulting Provider: Jakub Oneill 04/15/25 10:33 Referral Registered Dietitian Routine Comment: Attending Provider on DC: Iraj Phillips MD Discharging Provider: Cullen De Leon DO PGY1 DS: Diagnosis Problem List Completed Was Problem List Reviewed/Reconciled?: Yes Hospital Course Hospital Course Hospital course: In summary, Annmarie Pineda is a 67-year-old female with PMH of T2DM, arthritis, fibromyalgia, asthma, who presented to the ED on 04/14/2025 with worsening abdominal pain of 24H length. Initial abdominal series showed partial blockage of the small bowels. Patient was also hyperglycemic and there was concern over symptoms associated with DKA/HHS. However, she also presented with GLUCOSE of 306, anion gap 14, urine GLUCOSE 4+, urine ketones 3+, sinus tachycardia, and reported symptoms of nausea, prompting further workup for possible DKA. She was continued on IV fluids, INSULIN was started. Follow-up with BHB which was elevated to 4.2. Repeat CBC showed anion gap of 18. ABG showed no evidence of acidosis. CO2 21.9. Nonetheless, given increasing anion gap, decision was made to admit to ICU for INSULIN drip. While at the ICU, gap closed x 2. Patient was later downgraded to floors. Bowel movements were stimu lated by polyethylyne glycol. Patient SBO resolved completely, pt achieved multiple BM daily, and her abdominal pain went away. Follow up colonscopy, revealed internal hemorrhoids in an otherwise healthy colon. Some were banded. At the time of discharge, pt is medically stable and safe to return to her previous conditions of life. Imaging: CTAP: Supraumbilical hernia defect containing transverse colon + right ventral hernia defect containing small bowel + dilated small bowel loops. Acute abdominal series with Gastrografin study revealed partial small bowel obstruction. Contrast traveled to mildly distended small bowel loops as well as the colon. Admission Diagnoses: SBO (resolved) Acute-onset anemia orthostatic hypotension (needs to rule out) High anion gap Type 2 diabetes mellitus, INSULIN na?ve Bilateral lower extremity edema Depression Asthma Arthritis Fibromyalgia Electrolyte abnormalities Discharge Instructions * Follow-up with primary care provider within 1-2 weeks of discharge. Discuss glycemic control (A1C 10.2, mild DKA) * Continue taking INSULIN GLARGINE 22 unit every night (NEW). * Continue taking METFORMIN 500 mg twice daily (NEW). * STOP taking OZEMPIC until you see your primary care provider. Ozempic increase the risk of recurrent small bowel obstruction. * Continue taking medications as prescribed below. * Return to Emergency Room if symptoms persist, worsen, or new symptoms develop. Case was discussed with attending physician, Dr. Phillips, and senior resident Dr Avila. Cullen De Leon, DO PGY I Time Spent with Patient Time attestation: Total time spent providing and/or coordinating discharge services: Time spent: Greater than 30 minutes Quality: Stroke Pt Provided Written Stroke Discharge Instructions: No (STROKE S/S) Exam Vital Signs Temp Pulse Resp BP Pulse Ox O2 Del Method O2 Flow Rate 97.4 F 84 18 133/88 H 97 Room Air 3 04/17/25 12:04/17/25 12:04/17/25 12:04/17/25 12:04/17/25 12:04/17/25 12:04/16/25 17:15 Narrative Exam General: Alert and oriented x3, No apparent distress. Skin: Intact, Warm, no rashes. HEENT: Normocephalic, Atraumatic. Normal neck range of motion, Supple. Trachea midline. Respiratory: Lungs are clear to auscultation, Breath sounds are equal bilaterally with equal chest expansion. Abdomen: Soft, non-distended, normotensive bowel sounds x4. Percussion tympanic. No tenderness to shallow or deep palpatation. Cardiovascular: RRR, normal S1, S2, No murmurs. Distal pulses 2+ Musculoskeletal: No swelling, moving all 4 extremities with FROM Neurologic: Alert, Oriented, No focal deficits. Moving all 4 extremities spontaneously Psych: Thoughts linear and responses appropriate Discharge Plan Plan Patient Disposition: HOME (Self Care) Patient condition on transfer: Stable Care Plan Goals: * Follow-up with primary care provider within 1-2 weeks of discharge. Discuss glycemic control (A1C 10.2, mild DKA) * Continue taking INSULIN GLARGINE 22 unit every night (NEW). * Continue taking METFORMIN 500 mg twice daily (NEW). * STOP taking OZEMPIC until you see your primary care provider. Ozempic increase the risk of recurrent small bowel obstruction. * Continue taking medications as prescribed below. * Return to Emergency Room if symptoms persist, worsen, or new symptoms develop. Prescriptions/Referrals Prescriptions/Med Rec: New metformin 500 mg tablet 500 mg PO BID Qty: 30 0RF insulin glargine [Lantus U-100 Insulin] 100 unit/mL Solution 22 unit SCi QDAY 30 Days Qty: 6.6 0RF Continued lovastatin 40 MG tablet 40 mg PO HS Qty: 0 meloxicam 15 mg tablet 15 mg PO HS Patient Comments: take 1 tablet by mouth at bedtime hydroxyzine HCl 50 mg tablet 50 mg PO HS cyclobenzaprine 10 mg tablet 10 mg PO HS Patient Comments: take 1 tablet by mouth at bedtime sertraline 100 mg tablet 100 mg PO DAILY Patient Comments: take 1 tablet by mouth once daily omeprazole 20 mg capsule,delayed release(DR/EC) 20 mg PO DAILY Patient Comments: take 1 tablet by mouth once daily for HEARTBURN Jardiance 25 mg tablet 25 mg PO DAILY Patient Comments: take 1 tablet by mouth once daily ferrous sulfate [FeroSul] 325 mg (65 mg iron) tablet 325 mg PO AC Patient Comments: take 1 tablet by mouth once daily BEFORE A MEAL ergocalciferol (vitamin D2) 1,250 mcg (50,000 unit) capsule 1,250 mcg PO QWEEK Patient Comments: take 1 capsule by mouth every week Discontinued Ozempic 2 mg/dose (8 mg/3 mL) pen injector 2 mg SUBCUT QWEEK Patient Comments: inject 2 milligram subcutaneously every week Referrals: Brie Boyd FNP [Primary Care Provider] - Patient/Caregiver Discharge Instructions Education Materials: Small Bowel Obstruction, Diabetes Shopping Preparing Meals, Diabetes: The Benefits of Exercise, Diabetes: Meal Planning, ED Diet: Diabetes Print Language: Ukrainian Stand Alone Forms: Brittnee Award Info., Patient Portal Info Letter Discharge Order Discharge Orders: Discharge (Routine); Ordered 04/17/25 Ordered By: Gilmar Avila Quality Discharge Quality Measures VTE prophylaxis Attestestation MD Attestation I have examined the patient, reviewed labs and imaging findings, discussed the case with the resident(s), and reviewed entered orders. I agree with the plan of care as outlined in this note. Time Spent: [address] Alan MD
--- NOTE | 2025-04-18 13:30 | PC.CC ---
Request from Dr. Avila to order Hstry Kb 3 Plus system. Orders signed by Dr. Phillips and sent to [facility] via [employer]. Noted patient prescribed Lantus Vial with no syringes. Will request Rx from
--- NOTE | 2025-04-18 22:14 | PD.IMPROG ---
Documentation for date of: 04/18/25 Subjective Subjective Interval history: Late entry for the note Case discussed with internal medicine team Okay to discharge patient Patient staffed with by location of the internal hemorrhoids Exam Vital Signs Temp Pulse Resp BP Pulse Ox O2 Del Method O2 Flow Rate 97.4 F 84 18 133/88 H 97 Room Air 3 04/17/25 12:00 04/17/25 12:00 04/17/25 12:00 04/17/25 12:00 04/17/25 12:00 04/17/25 12:00 04/16/25 17:15 Objective Labs 04/17/25 05:25 04/17/25 05:25 Impressions Impression: Status post band ligation of the internal hemorrhoids Okay to discharge patient ABG Interpretation ABG results: 04/14/25 04/14/25 04/14/25 13:05 17:51 22:32 ABG pH 7.36 ABG pCO2 43 ABG pO2 63 L ABG HCO3 25 ABG O2 Saturation 92 ABG Base Excess -1 VBG pH 7.51 7.47 VBG pCO2 33 L 40 VBG pO2 63 H 57 VBG Base Excess 4 H 5 H 04/15/25 07:25 ABG pH ABG pCO2 ABG pO2 ABG HCO3 ABG O2 Saturation ABG Base Excess VBG pH 7.45 VBG pCO2 42 VBG pO2 57 VBG Base Excess 4 H Assessment & Plan Time Spent With Patient Time: Total time spent is greater than 50% in coordination of care (as documented) at patient's floor/unit and/or counseling patient:
== END 2025-04-17 15:28 | disposition home or self-care (01) | DRG 347 ==
LOC: SERX 06:02 → SERHOLD 08:23 → S2SX 17:13 → S3SX 04-15 17:16
PROVIDERS: Internal Medicine; Specialist; Student in an Organized Health Care Education/Training Program; Admitting Provider Student in an Organized Health Care Education/Training Program; Emergency Provider Emergency Medicine; PCP Registered Nurse Community Health; Visit Provider Student in an Organized Health Care Education/Training Program
PROC: 0DJD8ZZ Inspection of Lower Intestinal Tract, Via Natural or Artificial Opening Endoscopic (ICD-10-PCS; CPT 45378; principal; 2025-04-16 15:30)
DX: K56.600 Partial intestinal obstruction, unspecified as to cause (principal); E11.10 Type 2 diabetes mellitus with ketoacidosis without coma; D62 Acute posthemorrhagic anemia; E78.5 Hyperlipidemia, unspecified; E86.0 Dehydration; F32.A Depression, unspecified; I10 Essential (primary) hypertension; J45.909 Unspecified asthma, uncomplicated; K64.8 Other hemorrhoids; K43.9 Ventral hernia without obstruction or gangrene; M79.7 Fibromyalgia; Z79.4 Long term (current) use of insulin; Z79.84 Long term (current) use of oral hypoglycemic drugs; Z79.899 Other long term (current) drug therapy; Z96.652 Presence of left artificial knee joint; I95.1 Orthostatic hypotension; M19.90 Unspecified osteoarthritis, unspecified site
CPT/HCPCS: 36415; 36600; 74018; 74176; 74250; 80053; 80061; 80069; 81001; 82010; 82728; 82803; 83036; 83540; 83550; 83605; 83615; 83690; 83735; 83880; 84100; 85025; 85610; 85730; 86850; 86900; 86901; 87040; 87081; 93306; 96361; 96365; 96366; 96375; 96376; A4649; J0131; J1200; J1644; J1815; J2250; J2270; J2405; J2470; J3010; J3475; J3480; J7120; J7999; Q9963; A9270